=== PATIENT | female | born 1975 | race African-American/Black ===

== ENCOUNTER 2016-09-02 20:41 | Emergency (ER) | payer MEDICAID ==
[2016-09-02] MEDS ORDERED: OXYCODONE-ACETAMINOPHEN 5-325 MG TABLET PO ONE (21:16)
--- NOTE | 2016-09-02 21:16 | ER Document Report ---
ED Medical Screen (RME) - General Stated Complaint: RIGHT ARM PAIN Notes: 41 yo female c/o right arm pain x 3 days. cant raise arm due to pain. started with tingling feeling in arm to the back of shoulder blade. no trauma. similar pain about a month ago. seen by PCM, supposed to be arranging ortho referral. TRAVEL OUTSIDE OF THE [place] IN LAST 30 DAYS: No - Related Data Allergies/Adverse Reactions: shrimp Allergy (Severe, Uncoded 01/19/16 08:15) n and v CONTROL PILLS Allergy (Unknown, Uncoded 01/19/16 08:15) Nausea, itching mushrooms Allergy (Uncoded 01/19/16 08:15) Past Medical History - Past Medical History Cardiac Medical History: Reports: Hx Heart Murmur Denies: Hx Coronary Artery Disease, Hx Heart Attack, Hx Hypertension Pulmonary Medical History: Denies: Hx Asthma, Hx Bronchitis, Hx COPD, Hx Pneumonia Neurological Medical History: Reports: Hx Cerebrovascular Accident - States she was told she had a TIA, Hx Migraine. Denies: Hx Seizures Musculoskeltal Medical History: Denies Hx Arthritis, Reports Hx Musculoskeletal Trauma Traumatic Medical History: Reports: Hx Fractures - Coccyx Past Surgical History: Reports: Hx Abdominal Surgery - umbilical hernia x2, Hx Section - x1, Hx Cholecystectomy - 2005, Hx Hysterectomy, Hx Umbilical Hernia - Immunizations Hx Diphtheria, Pertussis, Tetanus Vaccination: No
[2016-09-03] MEDS ORDERED: METHOCARBAMOL 500 MG TABLET PO ONE (02:17)
[2016-09-03] MEDS ORDERED: PREDNISONE 20 MG TABLET PO ONE (02:22)
--- NOTE | 2016-09-03 02:22 | ER Document Report ---
ED Extremity Problem, Upper - General Chief Complaint: R arm pain/ unable to move arm Stated Complaint: RIGHT ARM PAIN Mode of Arrival: Ambulatory Information source: Patient Notes: Patient is a 41-year-old -Burkin[place] female who presents to the ER today for continued right shoulder, right arm, right upper back pain with numbness and decrease of motion due to pain. Patient has been evaluated for this by her primary care provider who states that he thinks she has a pinched nerve and has advised that she follow-up with orthopedics. Patient states that she has not been able to follow-up with orthopedics because she has not been given her new address or phone number. She denies any injury to the arm, chest pain, shortness of breath, numbness or tingling anywhere else. TRAVEL OUTSIDE OF THE [place] IN LAST 30 DAYS: No - Related Data Allergies/Adverse Reactions: shrimp Allergy (Severe, Uncoded 01/19/16 08:15) n and v CONTROL PILLS Allergy (Unknown, Uncoded 01/19/16 08:15) Nausea, itching mushrooms Allergy (Uncoded 01/19/16 08:15) Past Medical History - General Information source: Patient - Social History Smoking Status: Unknown if Ever Smoked Family History: Arthritis, DM, Hypertension, Malignancy, Thyroid Disfunction, Other - PE on Fathers side Patient has suicidal ideation: No Patient has homicidal ideation: No - Past Medical History Cardiac Medical History: Reports: Hx Heart Murmur Denies: Hx Coronary Artery Disease, Hx Heart Attack, Hx Hypertension Pulmonary Medical History: Denies: Hx Asthma, Hx Bronchitis, Hx COPD, Hx Pneumonia Neurological Medical History: Reports: Hx Cerebrovascular Accident - States she was told she had a TIA, Hx Migraine. Denies: Hx Seizures Renal/ Medical History: Denies: Hx Peritoneal Dialysis Musculoskeltal Medical History: Denies Hx Arthritis, Reports Hx Musculoskeletal Trauma Traumatic Medical History: Reports: Hx Fractures - Coccyx Past Surgical History: Reports: Hx Abdominal Surgery - umbilical hernia x2, Hx Section - x1, Hx Cholecystectomy - 2005, Hx Hysterectomy, Hx Umbilical Hernia - Immunizations Hx Diphtheria, Pertussis, Tetanus Vaccination: No Review of Systems - Review of Systems Constitutional: No symptoms reported EENT: No symptoms reported Cardiovascular: No symptoms reported Respiratory: No symptoms reported Gastrointestinal: No symptoms reported Genitourinary: No symptoms reported Female Genitourinary: No symptoms reported Musculoskeletal: See HPI Skin: No symptoms reported Hematologic/Lymphatic: No symptoms reported Neurological/Psychological: No symptoms reported Physical Exam - Notes Notes: PHYSICAL EXAMINATION: GENERAL: Appears uncomfortable, but in no acute distress. HEAD: Atraumatic, normocephalic. EYES: Pupils equal round and reactive to light, extraocular movements intact, sclera anicteric, conjunctiva are normal. NECK: Normal range of motion but with pain with rotation to the right, supple without lymphadenopathy LUNGS: CTAB and equal. No wheezes rales or rhonchi. HEART: Regular rate and rhythm without murmurs BACK: Right trapezius tenderness, no vertebral tenderness, normal ROM GI/: no CVA tenderness EXTREMITIES: Decreased range of motion of the right arm secondary to pain, decreased ham facer strength of the right hand secondary to pain only, no pitting edema. No cyanosis. Good capillary refill in all extremities, good pulses in all extremities NEUROLOGICAL: Cranial nerves grossly intact. Normal sensory/motor exams. PSYCH: Normal mood, normal affect. SKIN: Warm, Dry, normal turgor, no rashes or lesions noted Course - Re-evaluation Re-evalutation: 09/03/16 03:43 Patient states that she has been diagnosed with a pinched nerve in her neck and that is what her primary care provider thinks is causing her pain. I will give her orthopedics new address and phone number to follow-up with as her primary care provider wants, patient will be placed in a sling here for comfort but has been advised to try to move the arm as much as possible. She feels better after muscle relaxer and steroid medication given here. I will send her home with these medications as well. Discharge - Discharge Clinical Impression: Upper back pain on right side, Right arm pain Condition: Stable Disposition: HOME, SELF-CARE Additional Instructions: Return immediately for any new or worsening symptoms. Follow up with orthopedic, call tomorrow to make followup appointment. Orthopedic Office [facility] [address] [place] [address] phone: [phone] Prescriptions: Methocarbamol [Robaxin 500 mg Tablet] 1,000 mg PO BID PRN #40 tablet PRN Reason: Prednisone 60 mg PO DAILY #21 tablet
[2016-09-03] MEDS ORDERED: HYDROCODONE/ACETAMINOPHEN 5-325 MG 6 TAB/DSPK PO PRN (03:46)
[2016-09-03 04:14] VITALS: BP 129/79
== END 2016-09-03 04:10 | disposition home or self-care (01) ==
LOC: ER 20:41
DX: G58.9 Mononeuropathy, unspecified (principal); M79.601 Pain in right arm; M25.511 Pain in right shoulder; M54.89 Other dorsalgia; R20.0 Anesthesia of skin; Z91.013 Allergy to seafood; Z88.8 Allergy status to other drugs, medicaments and biological substances; Z91.018 Allergy to other foods; Z86.73 Personal history of transient ischemic attack (TIA), and cerebral infarction without residual deficits; Z87.81 Personal history of (healed) traumatic fracture
CPT/HCPCS: 99283; 72040; J3490; J7512

== ENCOUNTER 2016-11-09 06:45 | Inpatient (IN) | payer MEDICAID ==
[2016-10-28 16:08] LABS: HEMATOCRIT 37.4 % (36.0-47.0); HEMOGLOBIN 12.4 g/dL (12.0-15.5); HGB HCT DIFFERENCE -0.2; MEAN CORPUSCULAR HEMOGLOBIN 28.2 pg (27.0-33.4); MEAN CORPUSCULAR HGB CONC 33.1 g/dL (32.0-36.0); MEAN CORPUSCULAR VOLUME 85 fl (80-97); RED BLOOD COUNT 4.38 10^6/uL (3.72-5.28); WHITE BLOOD COUNT 6.3 10^3/uL (4.0-10.5)
[2016-10-28 16:18] LABS: APPEARANCE,URINE SLIGHTLY-CLOUDY; BILIRUBIN,URINE NEGATIVE (NEGATIVE); GLUCOSE, URINE NEGATIVE (NEGATIVE); KETONES,URINE NEGATIVE (NEGATIVE); LEUKOCYTE ESTERASE,URINE NEGATIVE (NEGATIVE); NITRITE,URINE NEGATIVE (NEGATIVE); PROTEIN,URINE NEGATIVE (NEGATIVE); URINE SPECIFIC GRAVITY 1.006; UROBILINOGEN,URINE NEGATIVE mg/dL (<2.0)
[2016-10-28 16:31] LABS: ANION GAP 10 (5-19); BLOOD UREA NITROGEN 6 mg/dL (7-20); CALCIUM 9.3 mg/dL (8.4-10.2); CARBON DIOXIDE 29 mmol/L (22-30); CHLORIDE 104 mmol/L (98-107); CREATININE RESULT 0.61 mg/dL (0.52-1.25); GLUCOSE 99 mg/dL (75-110); POTASSIUM 4.5 mmol/L (3.6-5.0); SODIUM 142.8 mmol/L (137-145)
--- NOTE | 2016-10-28 21:40 | EKG REPORT ---
SEVERITY:- NORMAL ECG - SINUS RHYTHM : Confirmed by: Laureano Gooden 28-Oct-2016 21:38:53
[~2016-11-09 06:45] MED LIST: BUPIVACAINE INJ/PF LIPOSOME/PF 266 MG/20 ML SDV IJ PRN; IBUPROFEN 800 MG/NS 250 ML IV PRN; LACTATED RINGERS 1000 ML IV PRN; LANSOPRAZOLE 15 MG TAB.RAP.DR PO PRN; LIDOCAINE 0.5% INJ-PF (5 MG/ML) 50 ML SDV SUBCUT PRN; OXYCODONE HCL SR 10 MG TABLET PO PRN; SCOPOLAMINE HYDROBROMIDE 1.5 MG PATCH.TD72 TOP PRN; VANCOMYCIN HCL 1,000 MG in DEXTROSE 5%-WATER 250 ML IV PRN
[2016-11-09] MEDS ORDERED: CEFAZOLIN INJ 1 GM VIAL ONE (06:57)
[2016-11-09] MEDS ORDERED: THROMBIN (BOVINE) TOPICAL 20000 UNIT VIAL ONE (07:21)
[2016-11-09] MEDS ORDERED: THROMBIN (BOVINE) 5000 UNIT EPITAXIS KIT ONE (07:21)
[2016-11-09] MEDS ORDERED: BUPIVACAINE INJ/PF LIPOSOME/PF 266 MG/20 ML SDV ONE (07:21)
[2016-11-09] MEDS ORDERED: FENTANYL CITRATE INJ/PF 100 MCG/2 ML AMPUL ONE (07:52)
[2016-11-09] MEDS ORDERED: MIDAZOLAM 2 MG/2 ML INJ ONE (07:52)
[2016-11-09] MEDS ORDERED: PROPOFOL INJ 200 MG/20 ML VIAL IV ONE (07:53)
[2016-11-09] MEDS ORDERED: TRANEXAMIC ACID INJ/PF 1,000 MG/10 ML SDV IV ONE ×2 (07:53→12:00)
[2016-11-09] MEDS ORDERED: DEXMEDETOMIDINE INJ 80 MCG/20 ML VIAL IV ONE (07:53)
[2016-11-09] MEDS ORDERED: KETAMINE HCL INJ 500 MG/10 ML VIAL ONE (08:02)
[2016-11-09] MEDS ORDERED: MORPHINE SULFATE 10 MG/ML INJ IV PRN ×3 (08:18→10:20)
[2016-11-09] MEDS ORDERED: OXYCODONE-ACETAMINOPHEN 5-325 MG TABLET PO PRN ×2 (08:18)
[2016-11-09] MEDS ORDERED: MEPERIDINE HCL/PF INJ 25 MG/1 ML DISP.SYRIN IV PRN (08:18)
[2016-11-09] MEDS ORDERED: DIPHENHYDRAMINE HCL 50 MG/ML VIAL IV PRN ×2 (08:18→10:20)
[2016-11-09] MEDS ORDERED: PROMETHAZINE HCL INJ 25 MG/1 ML VIAL IV PRN ×2 (08:18)
[2016-11-09] MEDS ORDERED: FENTANYL CITRATE INJ/PF 100 MCG/2 ML AMPUL IV PRN ×3 (08:18)
--- NOTE | 2016-11-09 10:19 | Operative Report ---
Operative Report DATE OF SURGERY: 11/09/16 PREOPERATIVE DIAGNOSIS: r knee oa OPERATION: r TKA SURGEON: KRYSTYNA DEGROOT ANESTHESIA: Spinal TISSUE REMOVED OR ALTERED: bone to path ESTIMATED BLOOD LOSS: 100 PROCEDURE: Implants used: Femur: Striker dhavallon #3 CR femur Tibia:, 2 tibia Tibial liner:, 9 mm CS insert Patella:, 29 mm oval patella Procedure with the patient supine on the operating table the, right the limb is prepped and draped in a sterile fashion. The limb was elevated for exsanguination and the tourniquet inflated to 280 torr. A standard midline median parapatellar approach the knee is taken. Access is gained to the femoral canal through the intercondylar notch. Intramedullary alignment instrumentation used to resect 10 mm of distal femur in 5 of valgus. Sizing guide indicated a size. 3 femur. Appropriate cutting jig is then used to fashion anterior posterior and chamfer cuts. A trial reduction femurs performed and this is judged to be adequate. Attention was next turned to the tibia. Using an extra medullary alignment system 9 millimeters was resected off the lateral tibial plateau. This is sized to a size to tibia. A trial reduction was now performed with a 3 femur and a to tibia using a 9 millimeters spacer. It is full extension and central patellofemoral tracking. The articular surface the patella was next resected using an oscillating saw. All trial implants were removed. Polymethylmethacrylate is mixed and used to cement the above implants in place. On adequate curing the cement excess cement was removed the tourniquet was deflated hemostasis obtained the wound is then closed in layers using interrupted Vicryl followed by flip. A sterile compressive dressing was applied and the patient returned to recovery room in satisfactory condition.
[2016-11-09] MEDS ORDERED: ONDANSETRON HCL INJ/PF 4 MG/2 ML SDV IV PRN (10:20)
[2016-11-09] MEDS ORDERED: ZOLPIDEM TARTRATE 5 MG TABLET PO PRN (10:20)
[2016-11-09] MEDS ORDERED: MORPHINE SULFATE 10 MG/ML INJ IM PRN (10:20)
[2016-11-09] MEDS ORDERED: RINGERS SOLUTION,LACTATED 1,000 ML IV PRN (10:20)
[2016-11-09] MEDS ORDERED: MAG HYDROX/AL HYDROX/SIMETH SUSP 30 ML UDCUP PO PRN (10:20)
[2016-11-09] MEDS ORDERED: ONDANSETRON 4 MG TAB.RAPDIS PO PRN (10:20)
[2016-11-09] MEDS ORDERED: METOCLOPRAMIDE HCL INJ/PF 10 MG/2 ML SDV ONE (10:46)
[2016-11-09] MEDS ORDERED: PHENYLEPHRINE HCL INJ/PF 10 MG/1 ML SDV ONE (10:46)
[2016-11-09] MEDS ORDERED: GLYCOPYRROLATE INJ 0.4 MG/2 ML VIAL ONE (10:46)
[2016-11-09] MEDS ORDERED: LIDOCAINE 2% INJ-PF (20 MG/ML) 10 ML AMPUL ONE (10:46)
[2016-11-09] MEDS ORDERED: ONDANSETRON HCL INJ/PF 4 MG/2 ML SDV ONE (10:46)
[2016-11-09] MEDS: OXYCODONE HCL IR 5 MG TABLET PO PRN (12:20)
[2016-11-09] MEDS: MORPHINE SULFATE 10 MG/ML INJ IV PRN ×2 (15:21→21:56)
[2016-11-09] MEDS ORDERED: ACETAMINOPHEN 100 ML IV ONE (16:20)
[2016-11-09] MEDS: CYCLOBENZAPRINE HCL 10 MG TABLET PO PRN (16:24)
[2016-11-09] MEDS: SENNOSIDES/DOCUSATE 8.6-50 MG 1 EACH TABLET PO SCH (17:06)
[2016-11-09] MEDS: IBUPROFEN 800 MG in NORMAL SALINE 250 ML IV SCH (17:06)
[2016-11-09] MEDS: RIVAROXABAN 10 MG TABLET PO SCH (21:46)
[2016-11-09] MEDS: OXYCODONE HCL SR 10 MG TABLET PO SCH (21:46)
[2016-11-09] MEDS ORDERED: VANCOMYCIN HCL 1,000 MG in DEXTROSE 5%-WATER 250 ML IV ONE (22:20)
[2016-11-10] MEDS: IBUPROFEN 800 MG in NORMAL SALINE 250 ML IV SCH ×3 (01:45→17:00)
[2016-11-10] MEDS: LANSOPRAZOLE 30 MG TAB.RAP.DR PO SCH (05:17)
[2016-11-10 07:08] LABS: HEMATOCRIT 34.8 % (36.0-47.0); HEMOGLOBIN 11.5 g/dL (12.0-15.5); HGB HCT DIFFERENCE -0.3; MEAN CORPUSCULAR HEMOGLOBIN 28.2 pg (27.0-33.4); MEAN CORPUSCULAR HGB CONC 33.1 g/dL (32.0-36.0); MEAN CORPUSCULAR VOLUME 85 fl (80-97); RED BLOOD COUNT 4.09 10^6/uL (3.72-5.28); RED CELL DISTRIBUTION WIDTH 14.6 % (11.5-14.0); WHITE BLOOD COUNT 8.2 10^3/uL (4.0-10.5)
[2016-11-10 07:24] LABS: ANION GAP 12 (5-19); BLOOD UREA NITROGEN 7 mg/dL (7-20); CALCIUM 8.6 mg/dL (8.4-10.2); CARBON DIOXIDE 23 mmol/L (22-30); CHLORIDE 105 mmol/L (98-107); CREATININE RESULT 0.57 mg/dL (0.52-1.25); GLUCOSE 117 mg/dL (75-110); POTASSIUM 3.9 mmol/L (3.6-5.0); SODIUM 139.5 mmol/L (137-145)
[2016-11-10] MEDS: MORPHINE SULFATE 10 MG/ML INJ IV PRN ×2 (08:10→11:46)
[2016-11-10] MEDS: PRENATAL VITAMIN W-O CA NO5/FE FUMARATE/FA CAPSULE PO SCH (09:38)
[2016-11-10] MEDS: SERTRALINE HCL 50 MG TABLET PO SCH (09:38)
[2016-11-10] MEDS: OXYCODONE HCL SR 10 MG TABLET PO SCH ×2 (09:38→21:03)
[2016-11-10] MEDS: SENNOSIDES/DOCUSATE 8.6-50 MG 1 EACH TABLET PO SCH ×2 (09:38→17:00)
[2016-11-10] MEDS: OXYCODONE HCL IR 5 MG TABLET PO PRN ×2 (13:31→20:04)
[2016-11-10] MEDS: CYCLOBENZAPRINE HCL 10 MG TABLET PO PRN (13:31)
[2016-11-10] MEDS: ACETAMINOPHEN 325 MG TABLET PO PRN (16:58)
[2016-11-10] MEDS: RIVAROXABAN 10 MG TABLET PO SCH (21:03)
[2016-11-11] MEDS: IBUPROFEN 800 MG in NORMAL SALINE 250 ML IV SCH ×2 (01:19→10:24)
[2016-11-11] MEDS: OXYCODONE HCL IR 5 MG TABLET PO PRN ×2 (02:08→08:39)
[2016-11-11] MEDS: LANSOPRAZOLE 30 MG TAB.RAP.DR PO SCH (05:18)
[2016-11-11] MEDS: ACETAMINOPHEN 325 MG TABLET PO PRN (05:21)
[2016-11-11 06:46] LABS: HEMATOCRIT 32.8 % (36.0-47.0); HEMOGLOBIN 10.7 g/dL (12.0-15.5); HGB HCT DIFFERENCE -0.7; MEAN CORPUSCULAR HEMOGLOBIN 27.8 pg (27.0-33.4); MEAN CORPUSCULAR HGB CONC 32.5 g/dL (32.0-36.0); MEAN CORPUSCULAR VOLUME 86 fl (80-97); RED BLOOD COUNT 3.83 10^6/uL (3.72-5.28); WHITE BLOOD COUNT 8.1 10^3/uL (4.0-10.5)
--- NOTE | 2016-11-11 07:10 | PDOC DISCHARGE SUMMARY ---
General - Admit/Disc Date/PCP Admission Date/Primary Care Provider: 11/09/16 06:45 RICHELLE NYE PA-C Discharge Date: 11/11/16 - Discharge Diagnosis (1) Arthritis of right knee Is this a current diagnosis for this admission?: Yes - Additional Information Resuscitation Status: Full Code Discharge Diet: As Tolerated, Regular Discharge Activity: Activity As Tolerated, Balance Activity w/Rest Home Medications: Cyclobenzaprine HCl [Flexeril 10 mg Tablet] 10 mg PO TIDP PRN 10/28/16 Ibuprofen [Motrin Ib] 600 mg PO Q6 PRN 10/28/16 Meloxicam [Mobic] 7.5 mg PO DAILY 10/28/16 Sertraline HCl [Zoloft] 25 mg PO DAILY 10/28/16 Zolpidem Tartrate [Ambien] 10 mg PO QPM 10/28/16 Oxycodone HCl [Oxy-Ir 5 mg Tablet] 5 mg PO Q6HP PRN #0 tablet 11/11/16 Rivaroxaban [Xarelto 10 mg Tablet] 10 mg PO QHS #0 tablet 11/11/16 History of Present Illness History of Present Illness: SHAQ JENKINS is a 41 year old female with progressive right knee pain and functional disability secondary osteoarthritis. She is currently admitted for elective right knee arthroplasty. Hospital Course Hospital Course: Patient's amended through the operating room where she undergoes uncomplicated right knee arthroplasty. She's returned to the floor in satisfactory condition. She makes excellent progress with physical therapy. Hematocrit remains in a stable range. Dressing is examined on postop day 2. She clean dry and intact. Distal neurovascular examinations intact. Physical Exam Vital Signs: Temp Pulse Resp BP Pulse Ox 36.6 C 72 17 123/50 L 100 11/10/16 23:57 11/10/16 23:57 11/10/16 23:57 11/10/16 23:57 11/10/16 23:57 Intake & Output 11/10/16 11/11/16 11/12/16 06:59 06:59 06:59 Intake Total 4730 1580 Output Total 250 1400 Balance 4480 180 Weight 122.9 kg General appearance: PRESENT: no acute distress Head exam: PRESENT: normocephalic Eye exam: PRESENT: EOMI Respiratory exam: PRESENT: unlabored Cardiovascular exam: PRESENT: RRR Pulses: PRESENT: +1 pedal pulses bilateral Vascular exam: PRESENT: normal capillary refill GI/Abdominal exam: PRESENT: soft Rectal exam: PRESENT: deferred Musculoskeletal exam: PRESENT: other - Lower extremity dressing is clean dry and intact. Neurological exam: PRESENT: alert, awake, oriented to person, oriented to place , oriented to time, oriented to situation, CN II-XII grossly intact. ABSENT: motor sensory deficit Psychiatric exam: PRESENT: appropriate affect, normal mood. ABSENT: homicidal ideation, suicidal ideation Skin exam: PRESENT: dry, intact, warm. ABSENT: cyanosis, rash Results Laboratory Results: 11/11/16 05:52 11/10/16 06:29 11/10/16 11/10/16 11/11/16 06:29 06:29 05:52 WBC 8.2 8.1 RBC 4.09 3.83 Hgb 11.5 L 10.7 L Hct 34.8 L 32.8 L MCV 85 86 MCH 28.2 27.8 MCHC 33.1 32.5 RDW 14.6 H 15.0 H Plt Count 222 233 Sodium 139.5 Potassium 3.9 Chloride 105 Carbon Dioxide 23 Anion Gap 12 BUN 7 Creatinine 0.57 Est GFR ( Amer) > 60 Est GFR (Non-Af Amer) > 60 Glucose 117 H Calcium 8.6 Impressions: Chest X-Ray 10/28/16 15:23 IMPRESSION: Minimal bibasilar bandlike atelectasis. Knee X-Ray 11/09/16 10:21 IMPRESSION: SATISFACTORY POSTOPERATIVE RIGHT KNEE. Status: Imported from PACS Plan Discharge Plan: Patient will be discharged home with home health nursing, home health physical therapy, we'll Walker, bedside commode. The vickie dressing can be changed by the home health nursing services on postop day #7. Follow-up with Dr. Gil in [facility] for surgery in 2 weeks for staple removal. Time Spent: Less than 30 Minutes
[2016-11-11] MEDS ORDERED: DIPHENHYDRAMINE HCL 25 MG CAPSULE PO PRN (09:47)
[2016-11-11] MEDS: OXYCODONE HCL SR 10 MG TABLET PO SCH (10:22)
[2016-11-11] MEDS: SENNOSIDES/DOCUSATE 8.6-50 MG 1 EACH TABLET PO SCH (10:23)
[2016-11-11] MEDS: SERTRALINE HCL 50 MG TABLET PO SCH (10:23)
[2016-11-11] MEDS: PRENATAL VITAMIN W-O CA NO5/FE FUMARATE/FA CAPSULE PO SCH (10:23)
[2016-11-11 11:21] VITALS: BP 132/73
== END 2016-11-11 12:45 | disposition home health service (06) | DRG 470 ==
LOC: INOR 06:45 → 4S 11:39
PROVIDERS: ADMIT Orthopaedic Surgery; ATTEND Orthopaedic Surgery
PROC: 0SRC0J9 Replacement of Right Knee Joint with Synthetic Substitute, Cemented, Open Approach (ICD-10-PCS; principal; 2016-11-09 09:00)
DX: M17.11 Unilateral primary osteoarthritis, right knee (principal); Z68.42 Body mass index [BMI] 45.0-49.9, adult; G43.909 Migraine, unspecified, not intractable, without status migrainosus; E66.01 Morbid (severe) obesity due to excess calories; F17.200 Nicotine dependence, unspecified, uncomplicated; Z98.51 Tubal ligation status; Z90.710 Acquired absence of both cervix and uterus; Z90.49 Acquired absence of other specified parts of digestive tract; Z82.49 Family history of ischemic heart disease and other diseases of the circulatory system; Z83.3 Family history of diabetes mellitus; Z80.9 Family history of malignant neoplasm, unspecified
CPT/HCPCS: 01402; 36415; 71020; 80048; 81001; 83036; 85027; 88305; 88311; 93005; 93010; 94799; C9290; J0131; J0690; J1741; J2250; J2270; J2370; J2405; J2704; J2765; J3010; J3370; J3490; J7050; J7060; S0119

== ENCOUNTER 2017-01-26 21:11 | Emergency (ER) | payer MEDICAID ==
--- NOTE | 2017-01-26 23:00 | RADIOLOGY REPORT (SQ) ---
EXAM DESCRIPTION: KNEE RIGHT 4 VIEWS COMPLETED DATE/TIME: 01/26/2017 10:48 pm REASON FOR STUDY: PAIN COMPARISON: 11/09/2016 NUMBER OF VIEWS: Four views. TECHNIQUE: AP, lateral, and both oblique radiographic images acquired of the right knee. LIMITATIONS: None. FINDINGS: MINERALIZATION: Normal. BONES: No acute fracture or dislocation. No worrisome bone lesions. No significant osteophytes. JOINT: There is been a total right knee replacement. OTHER: No other significant finding. IMPRESSION: There is been prior total right knee replacement. No acute findings. TECHNICAL DOCUMENTATION: JOB ID: [id number] [employer]- All Rights Reserved
[2017-01-27] MEDS ORDERED: OXYCODONE-ACETAMINOPHEN 5-325 MG TABLET PO ONE (00:30)
[2017-01-27] MEDS ORDERED: ONDANSETRON 4 MG TAB.RAPDIS PO ONE (00:30)
[2017-01-27] MEDS ORDERED: HYDROCODONE/ACETAMINOPHEN 5-325 MG 6 TAB/DSPK PO PRN (00:32)
--- NOTE | 2017-01-27 00:33 | ER Document Report ---
HPI - HPI Patient complains to provider of: over flexed right knee Onset: Just prior to arrival Onset/Duration: Sudden Quality of pain: Achy Pain Level: 5 Context: 41 yo female accidentally hyperflexed her right total knee replacement (11/11/16 ) tonight. [place] and heard a pop. Dr. Degroot surgeon. Associated Symptoms: None Exacerbated by: Movement Relieved by: Denies Similar symptoms previously: No Recently seen / treated by doctor: No - ROS ROS below otherwise negative: Yes Systems Reviewed and Negative: Yes All other systems reviewed and negative - GASTROINTESTINAL Gastrointestinal: REPORTS: Nausea - MUSCULOSKELETAL Musculoskeletal: REPORTS: Extremity pain - DERM Skin Color: Normal Skin Problems: None - NURSING COMMENTS Comment: Pt presents with c/o pain R knee/ leg s/p falling and landing on knee and bending leg back. States that she has had a knee replacement on the knee and she felt something pop. Is having alot of pain from knee up to hip. The pain is making her nauseated. A/O, sitting in WC, answers questions, appropriate. Past Medical History - General Information source: Patient - Social History Smoking Status: Unknown if Ever Smoked Frequency of alcohol use: None Drug Abuse: None Lives with: Family Family History: Arthritis, DM, Hypertension, Malignancy, Thyroid Disfunction, Other - PE on Fathers side Patient has suicidal ideation: No Patient has homicidal ideation: No - Past Medical History Cardiac Medical History: Reports: Hx Heart Murmur Pulmonary Medical History: Neurological Medical History: Reports: Hx Migraine GI Medical History: Reports: Hx Gastroesophageal Reflux Disease - occ. Musculoskeltal Medical History: Reports Hx Arthritis, Reports Hx Musculoskeletal Trauma Psychiatric Medical History: Reports: Hx Depression Traumatic Medical History: Reports: Hx Fractures - Coccyx Past Surgical History: Reports: Hx Abdominal Surgery - umbilical hernia x2, Hx Section - x1, Hx Cholecystectomy - 2005, Hx Herniorrhaphy - umbilical hernia repair x2, Hx Hysterectomy, Hx Tubal Ligation, Hx Umbilical Hernia - Immunizations Hx Diphtheria, Pertussis, Tetanus Vaccination: No Vertical Provider Document - CONSTITUTIONAL Agree With Documented VS: Yes Exam Limitations: No Limitations General Appearance: Mild Distress - INFECTION CONTROL TRAVEL OUTSIDE OF THE [place] IN LAST 30 DAYS: No - HEENT HEENT: Normocephalic - NECK Neck: Supple - RESPIRATORY O2 Sat by Pulse Oximetry: 98 - MUSCULOSKELETAL/EXTREMETIES Musculoskeletal/Extremeties: MAEW, FROM, Tender - anterior right knee, no effusion ,patellar tendon intact. Course - Vital Signs Vital signs: Temp Pulse Resp BP Pulse Ox 98.4 F 78 18 128/75 H 98 01/26/17 22:02 01/26/17 22:02 01/26/17 22:02 01/26/17 22:02 01/26/17 22:02 Discharge - Discharge Clinical Impression: hyperflexion of right TKR Condition: Good Disposition: HOME, SELF-CARE Instructions: Ice & Elevation ([facility]), Suspected Internal Knee Injury ([facility]), Oral Narcotic Medication ([facility]) Additional Instructions: use your walker elevate, ice see dr. degroot tomorrow for recheck to er if worse Prescriptions: Hydrocodone Bit/Acetaminophen [Hydrocodon-Acetaminophen 5-325] 1 - 2 each PO Q4HP PRN #15 tablet PRN Reason: Referrals: MICHELLE MAYERS DO [Primary Care Provider] - Follow up as needed KRYSTYNA DEGROOT MD [ACTIVE STAFF] - Follow up tomorrow
[2017-01-27 00:59] VITALS: BP 130/88
== END 2017-01-27 00:58 | disposition home or self-care (01) ==
LOC: ER 21:11
DX: M25.561 Pain in right knee (principal); X50.9XXA Other and unspecified overexertion or strenuous movements or postures, initial encounter
CPT/HCPCS: 99283; 73564; S0119

== ENCOUNTER 2017-04-16 10:39 | Emergency (ER) | payer MEDICAID ==
[2017-04-16] MEDS ORDERED: PHENAZOPYRIDINE HCL 200 MG TABLET PO ONE (10:52)
[2017-04-16] MEDS ORDERED: KETOROLAC TROMETHAMINE 60 MG/2 ML SDV IM ONE (10:52)
--- NOTE | 2017-04-16 10:52 | ER Document Report ---
ED GI/ - General Mode of Arrival: Ambulatory Information source: Patient TRAVEL OUTSIDE OF THE [place] IN LAST 30 DAYS: No <DOTTIE GOLDEN - Last Filed: 04/16/17 12:24> <DIEGODEONNAMAHESH - Last Filed: 04/16/17 12:45> - General Chief Complaint: Flank Pain Stated Complaint: VOMITING,URINARY PAIN Time Seen by Provider: 04/16/17 10:46 Notes: Patient is a 41 year old female presenting to the emergency department for frequency, burning with urination, and left CVA tenderness. Patient states 2 days ago she was having frequency every 15 minutes and yesterday she started having the CVA tenderness around 16:00. Patient states her symptoms progressed throughout the night with chills, sweats, and vomiting. Patient states her left flank is hot and she now also has some pain with urination. Patient does not know if she has any fever. Patient has a history of a previous UTI but states that her pain and symptoms are worse than in the past. Patient's PCP is [facility]. (DOTTIE GOLDEN) - Related Data Allergies/Adverse Reactions: ethinyl estradiol [From Ortho Tri-Cyclen LO (28)] Adverse Reaction (Verified 10:42) Nausea, Itching norgestimate [From Ortho Tri-Cyclen LO (28)] Adverse Reaction (Verified 10:42) Nausea, Itching shrimp Allergy (Severe, Uncoded 04/16/17 10:42) n and v mushrooms Allergy (Uncoded 04/16/17 10:42) Anaphylaxis, Headache Past Medical History - General Information source: Patient - Social History Smoking Status: Former Smoker Cigarette use (# per day): No Chew tobacco use (# tins/day): No Frequency of alcohol use: None Drug Abuse: None Family History: Arthritis, DM, Hypertension, Malignancy, Thyroid Disfunction, Other - PE on Fathers side Patient has suicidal ideation: No Patient has homicidal ideation: No - Past Medical History Cardiac Medical History: Reports: Hx Heart Murmur Pulmonary Medical History: Neurological Medical History: Reports: Hx Cerebrovascular Accident - mild 2013, Hx Migraine GI Medical History: Reports: Hx Gastroesophageal Reflux Disease - occ. Musculoskeltal Medical History: Reports Hx Arthritis - RA, Reports Hx Musculoskeletal Trauma Psychiatric Medical History: Reports: Hx Depression Traumatic Medical History: Reports: Hx Fractures - Coccyx Past Surgical History: Reports: Hx Abdominal Surgery - umbilical hernia x2, Hx Section - x1, Hx Cholecystectomy - 2005, Hx Herniorrhaphy - umbilical hernia repair x2, Hx Hysterectomy, Hx Orthopedic Surgery - knee replacement, Hx Tubal Ligation, Hx Umbilical Hernia - Immunizations Hx Diphtheria, Pertussis, Tetanus Vaccination: No <DOTTIE GOLDEN - Last Filed: 04/16/17 12:24> Review of Systems - Review of Systems Constitutional: No symptoms reported EENT: No symptoms reported Cardiovascular: See HPI, Dizziness Respiratory: No symptoms reported Gastrointestinal: See HPI, Abdominal pain Genitourinary: See HPI, Burning, Dysuria, Frequency, Flank pain Female Genitourinary: No symptoms reported Musculoskeletal: No symptoms reported Skin: No symptoms reported Hematologic/Lymphatic: No symptoms reported Neurological/Psychological: No symptoms reported -: Yes All other systems reviewed and negative <DOTTIE GOLDEN - Last Filed: 04/16/17 12:24> Physical Exam - Vital signs Interpretation: Normal <DOTTIE GOLDEN - Last Filed: 04/16/17 12:24> <MAHESH SYLVESTER - Last Filed: 04/16/17 12:45> - Vital signs Vitals: Temp Pulse Resp BP Pulse Ox 98.7 F 82 22 H 147/94 H 96 04/16/17 10:42 04/16/17 10:42 04/16/17 10:42 04/16/17 10:42 04/16/17 10:42 - Notes Notes: GENERAL: Alert, interacts well. Appears uncomfortable, holding left flank. Mild distress. HEAD: Normocephalic, atraumatic. EYES: Pupils equal, round, and reactive to light. Extraocular movements intact. ENT: Oral mucosa moist, tongue midline. NECK: Full range of motion. Supple. Trachea midline. LUNGS: Clear to auscultation bilaterally, no wheezes, rales, or rhonchi. No respiratory distress. HEART: Regular rate and rhythm. No murmurs, gallops, or rubs. ABDOMEN: Soft, slight epigastric, periumbilical and left lower quadrant are all tender with palpation. Non-distended. Bowel sounds present in all 4 quadrants. BACK: Left CVA tenderness with palpation. EXTREMITIES: Moves all 4 extremities spontaneously. No edema. No cyanosis. NEUROLOGICAL: Alert and oriented x3. Normal speech. PSYCH: Normal affect, normal mood. SKIN: Warm, dry, normal turgor. No rashes or lesions noted. (DOTITE GOLDEN) Course - Laboratory Result Diagrams: 04/16/17 11:13 04/16/17 11:13 - Consults Dr. Baker Time consulted: 12:16 <DOTTIE GOLDEN - Last Filed: 04/16/17 12:24> - Laboratory Result Diagrams: 04/16/17 11:13 04/16/17 11:13 <MAHESH SYLVESTER - Last Filed: 04/16/17 12:45> - Re-evaluation Re-evalutation: 04/16/17 12:14 CBC unremarkable no leukocytosis, CMP grossly unremarkable no signs of renal failure, lipase normal, urinalysis shows large blood and large leukocyte esterase, patient was sent for CT scan and it did reveal a 3.3 mm left ureteral stone with mild hydronephrosis. This will be treated with antibiotics and close follow-up with urology. 04/16/17 12:[address] Baker from urology, agrees to follow the patient as an outpatient after getting 1 g of Rocephin here being started on Augmentin and is to have a KUB performed next week and follow-up in their office. Also treat with Flomax. (MAHESH SYLVESTER) - Vital Signs Vital signs: Temp Pulse Resp BP Pulse Ox 98.5 F 64 20 129/78 H 97 04/16/17 12:33 04/16/17 12:33 04/16/17 12:33 04/16/17 12:33 04/16/17 12:33 - Laboratory Laboratory results interpreted by me: 04/16/17 04/16/17 04/16/17 11:13 11:13 11:13 RDW 16.5 H Carbon Dioxide 31 H BUN 6 L AST 13 L Urine Protein 100 H Urine Blood LARGE H Ur Leukocyte Esterase LARGE H - Consults Dr. Baker Reason for consultation: 04/16/17 12:[address] Baker, urology to discuss patient and recommendations. (DOTTIE GOLDEN) Discharge <DOTTIE GOLDEN - Last Filed: 04/16/17 12:24> <MAHESH SYLVESTER - Last Filed: 04/16/17 12:45> - Discharge Clinical Impression: Left ureteral calculus UTI (urinary tract infection) Qualifiers: Urinary tract infection type: acute cystitis Hematuria presence: with hematuria Qualified Code(s): N30.01 - Acute cystitis with hematuria Hydronephrosis Qualifiers: Hydronephrosis type: with ureteral calculous obstruction Qualified Code(s): N13.2 - Hydronephrosis with renal and ureteral calculous obstruction Condition: Stable Disposition: HOME, SELF-CARE Additional Instructions: You have a kidney stone as well as urinary tract infection, this will be treated with antibiotics, Flomax to help the stone pass more quickly, ibuprofen for pain as well as Percocet for increasing pain. Please return for fever, uncontrollable pain or any new or concerning symptoms. We have given you Zofran for the vomiting. Next week he will have a KUB (x-ray of your abdomen) and then follow-up with Dr. Baker in his office. Please call him Wednesday morning to arrange a follow- up appointment. Prescriptions: Ondansetron [Zofran Odt 4 mg Tablet] 1 - 2 tab PO Q4HP PRN #20 tab.rapdis PRN Reason: Oxycodone HCl/Acetaminophen [Percocet 5-325 mg Tablet] 1 tab PO Q4HP PRN #15 tab PRN Reason: Amox Tr/Potassium Clavulanate [Augmentin 875-125 Tablet] 1 tab PO BID 10 Days tablet Tamsulosin HCl [Flomax 0.4 mg Cap.sr] 0.4 mg PO DAILY #7 cap.sr.24h Forms: Follow-Up Radiology Testing, Return to Work Referrals: SUNNY BAKER MD [[employer]] - Follow up as needed Scribe Attestation: 04/16/17 12:45 I personally performed the services described in the documentation, reviewed and edited the documentation which was dictated to the scribe in my presence, and it accurately records my words and actions. (MAHESH SYLVESTER) Scribe Documentation - Scribe Written by Scribe:: Michael Rivera 04/16/17 11:39 acting as scribe for :: Srinivasan <DOTTIE GOLDEN - Last Filed: 04/16/17 12:24>
[2017-04-16 11:23] LABS: ABSOLUTE BASOPHILS # (AUTO) 0.1 10^3/uL (0.0-0.2); ABSOLUTE MONOCYTES (AUTO) 0.7 10^3/uL (0.1-1.4); ABSOLUTE NEUT (AUTO) 6.2 10^3/uL (1.7-8.2); BASOPHILS % (AUTO) 0.7 % (0-2); EOSINOPHILS % (AUTO) 0.1 % (0-6); HEMATOCRIT 38.4 % (36.0-47.0); HEMOGLOBIN 12.7 g/dL (12.0-15.5); HGB HCT DIFFERENCE -0.3; MEAN CORPUSCULAR HGB CONC 33.1 g/dL (32.0-36.0); MEAN CORPUSCULAR VOLUME 85 fl (80-97); RED BLOOD COUNT 4.54 10^6/uL (3.72-5.28); RED CELL DISTRIBUTION WIDTH 16.5 % (11.5-14.0); SEGMENTED NEUTROPHILS % (AUTO) 69.2 % (42-78); WHITE BLOOD COUNT 8.9 10^3/uL (4.0-10.5)
[2017-04-16 11:32] LABS: APPEARANCE,URINE CLOUDY; BILIRUBIN,URINE NEGATIVE (NEGATIVE); GLUCOSE, URINE NEGATIVE (NEGATIVE); KETONES,URINE NEGATIVE (NEGATIVE); LEUKOCYTE ESTERASE,URINE LARGE (NEGATIVE); NITRITE,URINE NEGATIVE (NEGATIVE); PROTEIN,URINE 100 mg/dL (NEGATIVE); UROBILINOGEN,URINE NEGATIVE mg/dL (<2.0)
[2017-04-16 11:57] LABS: ALANINE AMINOTRANSFERASE 26 U/L (9-52); ALBUMIN 3.9 g/dL (3.5-5.0); ALKALINE PHOSPHATASE 111 U/L (38-126); ANION GAP 9 (5-19); ASPARTATE AMINO TRANSFERASE 13 U/L (14-36); BILIRUBIN,DIRECT 0.3 mg/dL (0.0-0.4); BILIRUBIN,TOTAL 0.5 mg/dL (0.2-1.3); BLOOD UREA NITROGEN 6 mg/dL (7-20); CALCIUM 9.4 mg/dL (8.4-10.2); CARBON DIOXIDE 31 mmol/L (22-30); CHLORIDE 103 mmol/L (98-107); CREATININE RESULT 0.74 mg/dL (0.52-1.25); GLUCOSE 100 mg/dL (75-110); LIPASE 92.5 U/L (23-300); POTASSIUM 4.1 mmol/L (3.6-5.0); SODIUM 142.9 mmol/L (137-145)
--- NOTE | 2017-04-16 12:03 | RADIOLOGY REPORT (SQ) ---
EXAM DESCRIPTION: CT LTD RENAL STONE PROTOCOL ON COMPLETED DATE/TIME: 04/16/2017 11:51 am REASON FOR STUDY: left flank pain, hematuria COMPARISON: None. TECHNIQUE: CT scan of the abdomen and pelvis performed without intravenous or oral contrast. Images reviewed with lung, soft tissue, and bone windows. Reconstructed coronal and sagittal MPR images revi ewed. All images stored on PACS. All CT scanners at this facility use dose modulation, iterative reconstruction, and/or weight based d osing when appropriate to reduce radiation dose to as low as reasonably achievable (ALARA). [facility]: Dose Right [facility]: CareDose [facility]: Dose Right [facility]: Teradose 4D [facility]: [employer] RADIATION DOSE: Up-to-date CT equipment and radiation dose reduction techniques were employed. CTDIv ol: 18.9 mGy. DLP: 1124 mGy-cm.mGy. LIMITATIONS: None. FINDINGS: LOWER CHEST: No significant findings. No nodules or infiltrates. NON-CONTRASTED LIVER, SPLEEN, ADRENALS: Evaluation limited by lack of IV contrast. No identified sign ificant masses. PANCREAS: No masses. No peripancreatic inflammatory changes. GALLBLADDER: Surgically absent. RIGHT KIDNEY AND URETER: No suspicious masses. Assessment limited by lack of IV contrast. No signif icant calcifications. No hydronephrosis or hydroureter. LEFT KIDNEY AND URETER: No suspicious masses. Assessment limited by lack of IV contrast. 3 mm stone left ureter level of L4-5. Mild hydronephrosis and hydroureter. AORTA AND RETROPERITONEUM: No aneurysm. No retroperitoneal masses or adenopathy. BOWEL AND PERITONEAL CAVITY: No obvious masses or inflammatory changes. No free fluid. APPENDIX: Normal. PELVIS, BLADDER, AND ABDOMINAL WALL:Prior ventral hernia repair. BONES: No significant findings. OTHER: No other significant finding. IMPRESSION: 3 mm stone left ureter. Mild hydronephrosis. TECHNICAL DOCUMENTATION: JOB ID: [id number] Quality ID # [id number]: Final reports with documentation of one or more dose reduction techniques (e.g., Au tomated exposure control, adjustment of the mA and/or kV according to patient size, use of iterative reconstruction technique) 2010 [employer]- All Rights Reserved
[2017-04-16] MEDS ORDERED: CEFTRIAXONE INJ 1000 MG VIAL IM ONE (12:20)
[2017-04-16] MEDS ORDERED: LIDOCAINE 1% INJ-PF (10 MG/ML) 30 ML SDV INFIL ONE (12:20)
[2017-04-16 12:41] VITALS: BP 129/78
== END 2017-04-16 12:40 | disposition home or self-care (01) ==
LOC: ER 10:39
DX: N13.2 Hydronephrosis with renal and ureteral calculous obstruction (principal); N30.01 Acute cystitis with hematuria; R68.83 Chills (without fever); R61 Generalized hyperhidrosis; R11.10 Vomiting, unspecified; R42 Dizziness and giddiness; Z91.013 Allergy to seafood; Z87.892 Personal history of anaphylaxis; Z91.018 Allergy to other foods; Z87.891 Personal history of nicotine dependence; Z86.73 Personal history of transient ischemic attack (TIA), and cerebral infarction without residual deficits
CPT/HCPCS: 99284; 96372; 36415; 87086; 83690; 85025; 87088; 80053; 81001; 87186; 76380; J1885; J3490 ×2; J0696

== ENCOUNTER 2017-06-03 19:46 | Emergency (ER) | payer MEDICAID ==
[2017-06-03 21:38] LABS: APPEARANCE,URINE CLEAR; BILIRUBIN,URINE NEGATIVE (NEGATIVE); GLUCOSE, URINE NEGATIVE (NEGATIVE); KETONES,URINE NEGATIVE (NEGATIVE); LEUKOCYTE ESTERASE,URINE NEGATIVE (NEGATIVE); NITRITE,URINE NEGATIVE (NEGATIVE); PROTEIN,URINE NEGATIVE (NEGATIVE); URINE SPECIFIC GRAVITY 1.021
[2017-06-03] MEDS ORDERED: OXYCODONE-ACETAMINOPHEN 5-325 MG TABLET PO ONE (22:02)
--- NOTE | 2017-06-03 22:02 | ER Document Report ---
ED Medical Screen (RME) - General Chief Complaint: Flank Pain Stated Complaint: BODY PAIN,HURTS TO BREATH Time Seen by Provider: 06/03/17 21:59 Mode of Arrival: Ambulatory Information source: Patient Notes: Pt has 1 day of right sided back pain radiating to the right side and right upper abdomen, right middle abdomen. She denies any fevers or chills. TRAVEL OUTSIDE OF THE [place] IN LAST 30 DAYS: No - Related Data Allergies/Adverse Reactions: ethinyl estradiol [From Ortho Tri-Cyclen LO (28)] Adverse Reaction (Verified 08/08 21:22) Nausea, Itching norgestimate [From Ortho Tri-Cyclen LO (28)] Adverse Reaction (Verified 21:22) Nausea, Itching shrimp Allergy (Severe, Uncoded 06/03/17 21:22) n and v mushrooms Allergy (Uncoded 06/03/17 21:22) Anaphylaxis, Headache Past Medical History - General Information source: Patient - Social History Chew tobacco use (# tins/day): No Frequency of alcohol use: None Drug Abuse: None - Past Medical History Cardiac Medical History: Reports: Hx Heart Murmur Denies: Hx Atrial Fibrillation, Hx Congestive Heart Failure, Hx Coronary Artery Disease, Hx Heart Attack, Hx Hypercholesterolemia, Hx Hypertension, Hx Peripheral Vascular Disease Pulmonary Medical History: Neurological Medical History: Reports: Hx Cerebrovascular Accident - mild 2013, Hx Migraine. Denies: Hx Seizures Renal/ Medical History: Denies: Hx End Stage Renal Disease, Hx Kidney Stones, Hx Ovarian Cysts, Hx Peritoneal Dialysis, Hx Pelvic Inflammatory Disease Malignancy Medical History: Denies: Hx Breast Cancer, Hx Cervical Cancer, Hx Leukemia, Hx Ovarian Cancer GI Medical History: Reports: Hx Gastroesophageal Reflux Disease - occ.. Denies : Hx Crohn's Disease, Hx Hiatal Hernia, Hx Irritable Bowel, Hx Liver Failure, Hx Pancreatitis, Hx Ulcer Musculoskeltal Medical History: Reports Hx Arthritis - RA, Denies Hx Fibromyalgia, Denies Hx Multiple Sclerosis, Denies Hx Muscular Dystrophy, Reports Hx Musculoskeletal Trauma Psychiatric Medical History: Reports: Hx Depression Denies: Hx Bipolar Disorder, Hx Dementia, Hx Post Traumatic Stress Disorder, Hx Schizophrenia Traumatic Medical History: Reports: Hx Fractures - Coccyx Infectious Medical History: Denies: Hx HIV Past Surgical History: Reports: Hx Abdominal Surgery - umbilical hernia x2, Hx Section - x1, Hx Cholecystectomy - 2005, Hx Herniorrhaphy - umbilical hernia repair x2, Hx Hysterectomy, Hx Orthopedic Surgery - knee replacement, Hx Tubal Ligation, Hx Umbilical Hernia. Denies: Hx Appendectomy, Hx Bowel Surgery , Hx Colostomy, Hx Coronary Artery Bypass Graft, Hx Gastric Bypass Surgery, Hx Mastectomy, Hx Pacemaker, Hx Tonsillectomy - Immunizations Hx Diphtheria, Pertussis, Tetanus Vaccination: Yes History of Influenza Vaccine for 05/2017 - 10/2017 Season: No Review of Systems - Review of Systems Gastrointestinal: See HPI Genitourinary: See HPI Physical Exam - Vital signs Vitals: Temp Pulse Resp BP Pulse Ox 98.5 F 64 16 137/82 H 99 06/03/17 20:46 06/03/17 20:46 06/03/17 20:46 06/03/17 20:46 06/03/17 20:46 - Notes Notes: General: holding right side, in mild acute distress Course - Vital Signs Vital signs: Temp Pulse Resp BP Pulse Ox 98.5 F 64 18 137/82 H 99 06/03/17 20:46 06/03/17 20:46 06/03/17 21:20 06/03/17 20:46 06/03/17 20:46 - Laboratory Laboratory results interpreted by me: 06/03/17 20:55 Urine Blood SMALL H Urine Urobilinogen 2.0 H
--- NOTE | 2017-06-03 22:45 | RADIOLOGY REPORT (SQ) ---
EXAM DESCRIPTION: CT LTD RENAL STONE PROTOCOL ON COMPLETED DATE/TIME: 06/03/2017 10:28 pm REASON FOR STUDY: right flank pain COMPARISON: 04/16/2017 TECHNIQUE: CT scan of the abdomen and pelvis performed without intravenous or oral contrast. Images reviewed with lung, soft tissue, and bone windows. Reconstructed coronal and sagittal MPR images revi ewed. All images stored on PACS. All CT scanners at this facility use dose modulation, iterative reconstruction, and/or weight based d osing when appropriate to reduce radiation dose to as low as reasonably achievable (ALARA). [facility]: Dose Right [facility]: CareDose [facility]: Dose Right [facility]: Teradose 4D [facility]: [employer] RADIATION DOSE: Up-to-date CT equipment and radiation dose reduction techniques were employed. CTDIv ol: 26.2 mGy. DLP: 1462 mGy-cm.mGy. LIMITATIONS: None. FINDINGS: LOWER CHEST: No significant findings. No nodules or infiltrates. NON-CONTRASTED LIVER, SPLEEN, ADRENALS: Evaluation limited by lack of IV contrast. No identified sign ificant masses. PANCREAS: No masses. No peripancreatic inflammatory changes. GALLBLADDER: Surgically absent. RIGHT KIDNEY AND URETER: No suspicious masses. Assessment limited by lack of IV contrast. No signif icant calcifications. No hydronephrosis or hydroureter. LEFT KIDNEY AND URETER: No suspicious masses. Assessment limited by lack of IV contrast. No signifi cant calcifications. No hydronephrosis or hydroureter. AORTA AND RETROPERITONEUM: No aneurysm. No retroperitoneal masses or adenopathy. BOWEL AND PERITONEAL CAVITY: No obvious masses or inflammatory changes. No free fluid. APPENDIX: Normal. PELVIS, BLADDER, AND ABDOMINAL WALL:Prior ventral hernia repair. No free fluid. Bladder normal. BONES: No acute findings. Bilateral sacroiliitis. OTHER: No other significant finding. IMPRESSION: NO ACUTE PROCESS IN THE ABDOMEN OR PELVIS. COMMENT: Quality ID # [id number]: Final reports with documentation of one or more dose reduction techniques (e.g., Automated exposure control, adjustment of the mA and/or kV according to patient size, use of iterative reconstruction technique) TECHNICAL DOCUMENTATION: JOB ID: [id number]- All Rights Reserved
--- NOTE | 2017-06-03 23:08 | ER Document Report ---
ED General - General Chief Complaint: Flank Pain Stated Complaint: BODY PAIN,HURTS TO BREATH Time Seen by Provider: 06/03/17 21:59 Mode of Arrival: Ambulatory Notes: Patient is a 42-year-old female presents with complaint of pain that radiates from her right back around to her right upper abdomen and epigastric region. She also complains of a little bit of pain with urination. She says if she coughs or takes a deep breath hurts as well. She twists or turns or pushes on this area and also hurts. No pain into the chest or lungs. No fevers. No infections. She said she had similar pain while back and it was a kidney stone. No other complaints at this time. TRAVEL OUTSIDE OF THE [place] IN LAST 30 DAYS: No - Related Data Allergies/Adverse Reactions: ethinyl estradiol [From Ortho Tri-Cyclen LO (28)] Adverse Reaction (Verified 08/08 21:22) Nausea, Itching norgestimate [From Ortho Tri-Cyclen LO (28)] Adverse Reaction (Verified 21:22) Nausea, Itching shrimp Allergy (Severe, Uncoded 06/03/17 21:22) n and v mushrooms Allergy (Uncoded 06/03/17 21:22) Anaphylaxis, Headache Past Medical History - General Information source: Patient - Social History Smoking Status: Smoker,Current Status Unk Chew tobacco use (# tins/day): No Frequency of alcohol use: None Drug Abuse: None Family History: Arthritis, DM, Hypertension, Malignancy, Thyroid Disfunction, Other - PE on Fathers side Patient has suicidal ideation: No - Past Medical History Cardiac Medical History: Reports: Hx Heart Murmur Denies: Hx Atrial Fibrillation, Hx Congestive Heart Failure, Hx Coronary Artery Disease, Hx Heart Attack, Hx Hypercholesterolemia, Hx Hypertension, Hx Peripheral Vascular Disease Pulmonary Medical History: Neurological Medical History: Reports: Hx Cerebrovascular Accident - mild 2013, Hx Migraine. Denies: Hx Seizures Renal/ Medical History: Denies: Hx End Stage Renal Disease, Hx Kidney Stones, Hx Ovarian Cysts, Hx Peritoneal Dialysis, Hx Pelvic Inflammatory Disease Malignancy Medical History: Denies: Hx Breast Cancer, Hx Cervical Cancer, Hx Leukemia, Hx Ovarian Cancer GI Medical History: Reports: Hx Gastroesophageal Reflux Disease - occ.. Denies : Hx Crohn's Disease, Hx Hiatal Hernia, Hx Irritable Bowel, Hx Liver Failure, Hx Pancreatitis, Hx Ulcer Musculoskeltal Medical History: Reports Hx Arthritis - RA, Denies Hx Fibromyalgia, Denies Hx Multiple Sclerosis, Denies Hx Muscular Dystrophy, Reports Hx Musculoskeletal Trauma Psychiatric Medical History: Reports: Hx Depression Denies: Hx Bipolar Disorder, Hx Dementia, Hx Post Traumatic Stress Disorder, Hx Schizophrenia Traumatic Medical History: Reports: Hx Fractures - Coccyx Infectious Medical History: Denies: Hx HIV Past Surgical History: Reports: Hx Abdominal Surgery - umbilical hernia x2, Hx Section - x1, Hx Cholecystectomy - 2005, Hx Herniorrhaphy - umbilical hernia repair x2, Hx Hysterectomy, Hx Orthopedic Surgery - knee replacement, Hx Tubal Ligation, Hx Umbilical Hernia. Denies: Hx Appendectomy, Hx Bowel Surgery , Hx Colostomy, Hx Coronary Artery Bypass Graft, Hx Gastric Bypass Surgery, Hx Mastectomy, Hx Pacemaker, Hx Tonsillectomy - Immunizations Hx Diphtheria, Pertussis, Tetanus Vaccination: Yes Review of Systems - Review of Systems Notes: My Normal Review Basic REVIEW OF SYSTEMS: CONSTITUTIONAL : Denies fever, chills, or sweats. Denies recent illness. EENT: Denies eye, ear, throat, or mouth pain or symptoms. Denies nasal or sinus congestion. CARDIOVASCULAR: Denies chest pain. RESPIRATORY: Denies cough, cold, or chest congestion. Denies shortness of breath, difficulty breathing, or wheezing. GASTROINTESTINAL: Right-sided upper abdominal pain. No nausea vomiting. No diarrhea. GENITOURINARY: Some dysuria. FEMALE GENITOURINARY: Denies vaginal bleeding, abnormal or irregular periods. LMP: MUSCULOSKELETAL: Right-sided back and flank pain. SKIN: Denies rash or skin lesions. NEUROLOGICAL: Denies altered mental status or loss of consciousness. Denies headache. Denies weakness or paralysis or loss of use of either side. Denies problems with gait or speech. Denies sensory or motor loss. ALL OTHER SYSTEMS REVIEWED AND NEGATIVE. Physical Exam - Vital signs Vitals: Temp Pulse Resp BP Pulse Ox 98.5 F 64 16 137/82 H 99 06/03/17 20:46 06/03/17 20:46 06/03/17 20:46 06/03/17 20:46 06/03/17 20:46 - Notes Notes: General Appearance: Well nourished, alert, cooperative, no acute distress, mild to moderate obvious discomfort. Vitals: reviewed, See vital signs table. Head: no swelling or tenderness to the head Eyes: PERRL, EOMI, Conjuctiva clear Mouth: No decreasd moisture Lungs: No wheezing, No rales, No rhonci, No accessory muscle use, good air exchange bilaterally. Heart: Normal rate, Regular rythm, No murmur, no rub Abdomen: Normal BS, soft, No rigidity, easily reproducible pain to palpation from the right back around the right flank and into the right upper quadrant of the abdomen and epigastric region., No guarding, no rebound, no abdominal masses , no organomegaly Extremities: strength 5/5 in all extremities, good pulses in all extremities, no swelling or tenderness in the extremities, no edema. Skin: warm, dry, appropriate color, no rash. No shingles like lesions on the skin of the back, flank, or abdomen. Neuro: speech clear, oriented x 3, normal affect, responds appropriately to questions. Course - Re-evaluation Re-evalutation: 06/04/17 05:39 Patient's pain is improving. Her urinalysis is negative. CT scan was negative. Pain is reproducible palpation. This may be musculoskeletal. Also informed her this could be early signs of shingles however there is no rash at this time to confirm that. Informed her that the exact cause is still 100% clear. I will send her urine for culture in case it does grow out infection. If this is positive then we will give her a call. Encouraged her return to ER immediately if she has worsening pain, fevers, or she feels unwell, or she develops a rash. Encouraged her follow-up closely with her doctor Wednesday for reevaluation. Patient agrees with plan will be discharged home. Dictation of this chart was performed using voice recognition software; therefore, there may be some unintended grammatical errors. 06/04/17 05:40 - Vital Signs Vital signs: Temp Pulse Resp BP Pulse Ox 98.2 F 71 18 130/83 H 99 06/04/17 01:04 06/04/17 01:04 06/03/17 21:20 06/04/17 01:04 06/03/17 20:46 - Laboratory Result Diagrams: 06/03/17 23:20 06/03/17 23:20 Laboratory results interpreted by me: 06/03/17 06/03/17 06/03/17 20:55 23:20 23:20 RDW 16.8 H BUN 5 L AST 13 L Urine Blood SMALL H Urine Urobilinogen 2.0 H Discharge - Discharge Clinical Impression: Flank pain, acute Abdominal pain Qualifiers: Abdominal location: upper abdomen, unspecified Qualified Code(s): R10.10 - Upper abdominal pain, unspecified Condition: Good Disposition: HOME, SELF-CARE Additional Instructions: Please return to the ER immediately if you develop worsening pain, fevers, intractable vomiting, diarrhea, or feel unwell. Your urine today showed no signs of infection. I will still send your urine to have it cultured since you were having some dysuria. If the culture is positive we will call you. Your CT scan was normal. Please follow up with your doctor on Wednesday for reevaluation. Sometimes the pain you are having can be a precursor to shingles. Please return to the ER if you develop a rash. Prescriptions: Tramadol HCl [Ultram] 50 mg PO Q6 PRN #14 tablet PRN Reason: pain Forms: Return to Work
[2017-06-03 23:30] LABS: ABSOLUTE BASOPHILS # (AUTO) 0.1 10^3/uL (0.0-0.2); ABSOLUTE LYMPHOCYTES (AUTO) 2.2 10^3/uL (0.5-4.7); ABSOLUTE MONOCYTES (AUTO) 0.6 10^3/uL (0.1-1.4); ABSOLUTE NEUT (AUTO) 4.3 10^3/uL (1.7-8.2); BASOPHILS % (AUTO) 1.1 % (0-2); EOSINOPHILS % (AUTO) 0.4 % (0-6); HEMOGLOBIN 12.9 g/dL (12.0-15.5); HGB HCT DIFFERENCE -1.3; LYMPHOCYTES % (AUTO) 30.5 % (13-45); MEAN CORPUSCULAR HEMOGLOBIN 27.4 pg (27.0-33.4); MEAN CORPUSCULAR HGB CONC 32.2 g/dL (32.0-36.0); MEAN CORPUSCULAR VOLUME 85 fl (80-97); MONOCYTES % (AUTO) 8.8 % (3-13); RED BLOOD COUNT 4.71 10^6/uL (3.72-5.28); RED CELL DISTRIBUTION WIDTH 16.8 % (11.5-14.0); SEGMENTED NEUTROPHILS % (AUTO) 59.2 % (42-78); WHITE BLOOD COUNT 7.2 10^3/uL (4.0-10.5)
[2017-06-03 23:49] LABS: ALANINE AMINOTRANSFERASE 33 U/L (9-52); ALBUMIN 4.1 g/dL (3.5-5.0); ALKALINE PHOSPHATASE 120 U/L (38-126); ANION GAP 14 (5-19); ASPARTATE AMINO TRANSFERASE 13 U/L (14-36); BILIRUBIN,DIRECT 0.4 mg/dL (0.0-0.4); BILIRUBIN,TOTAL 0.4 mg/dL (0.2-1.3); BLOOD UREA NITROGEN 5 mg/dL (7-20); CALCIUM 9.7 mg/dL (8.4-10.2); CARBON DIOXIDE 27 mmol/L (22-30); CHLORIDE 104 mmol/L (98-107); CREATININE RESULT 0.63 mg/dL (0.52-1.25); GLUCOSE 108 mg/dL (75-110); POTASSIUM 3.9 mmol/L (3.6-5.0); SODIUM 144.7 mmol/L (137-145); TOTAL PROTEIN 7.2 g/dL (6.3-8.2)
[2017-06-04] MEDS ORDERED: TRAMADOL HCL 50 MG TABLET PO ONE (00:42)
[2017-06-04 01:15] VITALS: BP 130/83
== END 2017-06-04 01:04 | disposition home or self-care (01) ==
LOC: ER 19:46
DX: R10.11 Right upper quadrant pain (principal); R10.13 Epigastric pain; R30.0 Dysuria; Z87.442 Personal history of urinary calculi; Z91.013 Allergy to seafood; Z87.892 Personal history of anaphylaxis; Z91.018 Allergy to other foods; Z87.19 Personal history of other diseases of the digestive system; Z90.49 Acquired absence of other specified parts of digestive tract; Z90.710 Acquired absence of both cervix and uterus; Z98.51 Tubal ligation status
CPT/HCPCS: 36415; 76380; 80053; 81001; 81025; 83690; 85025; 99284

== ENCOUNTER 2017-07-04 22:12 | Emergency (ER) | payer MEDICAID ==
[2017-07-04] MEDS ORDERED: MORPHINE SULFATE 10 MG/ML INJ IV ONE (22:59)
[2017-07-04] MEDS ORDERED: NORMAL SALINE 1000 ML 1,000 ML IV ONE (22:59)
[2017-07-04] MEDS ORDERED: ONDANSETRON HCL INJ/PF 4 MG/2 ML SDV IV ONE (22:59)
--- NOTE | 2017-07-04 23:02 | ER Document Report ---
ED General - General Chief Complaint: Abdominal Pain Stated Complaint: ABDOMINAL PAIN Time Seen by Provider: 07/04/17 22:54 Notes: Patient is a 42-year-old female who presents with complaint of vomiting and diarrhea and abdominal pain. She says abdominal pain is in the central portion of her abdomen. She has had hernia repair in this area once before. Also has a history of hysterectomy. She says she thinks there is a mesh in place there. No blood in the stool. No blood in emesis. No fevers. 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 No recent antibiotic use. No other complaints at this time. TRAVEL OUTSIDE OF THE [place] IN LAST 30 DAYS: No - Related Data Allergies/Adverse Reactions: ethinyl estradiol [From Ortho Tri-Cyclen LO (28)] Adverse Reaction (Verified 01:33) Nausea, Itching norgestimate [From Ortho Tri-Cyclen LO (28)] Adverse Reaction (Verified 01:33) Nausea, Itching shrimp Allergy (Severe, Uncoded 07/05/17 01:33) n and v mushrooms Allergy (Uncoded 07/05/17 01:33) Anaphylaxis, Headache Past Medical History - Social History Smoking Status: Never Smoker Frequency of alcohol use: None Drug Abuse: None Family History: Arthritis, DM, Hypertension, Malignancy, Thyroid Disfunction, Other - PE on Fathers side Patient has suicidal ideation: No Patient has homicidal ideation: No - Past Medical History Cardiac Medical History: Reports: Hx Heart Murmur Denies: Hx Atrial Fibrillation, Hx Congestive Heart Failure, Hx Coronary Artery Disease, Hx Heart Attack, Hx Hypercholesterolemia, Hx Hypertension, Hx Peripheral Vascular Disease Pulmonary Medical History: Neurological Medical History: Reports: Hx Cerebrovascular Accident - mild 2013, Hx Migraine. Denies: Hx Seizures Renal/ Medical History: Denies: Hx End Stage Renal Disease, Hx Kidney Stones, Hx Ovarian Cysts, Hx Peritoneal Dialysis, Hx Pelvic Inflammatory Disease Malignancy Medical History: Denies: Hx Breast Cancer, Hx Cervical Cancer, Hx Leukemia, Hx Ovarian Cancer GI Medical History: Reports: Hx Gastroesophageal Reflux Disease - occ.. Denies : Hx Crohn's Disease, Hx Hiatal Hernia, Hx Irritable Bowel, Hx Liver Failure, Hx Pancreatitis, Hx Ulcer Musculoskeltal Medical History: Reports Hx Arthritis - RA, Denies Hx Fibromyalgia, Denies Hx Multiple Sclerosis, Denies Hx Muscular Dystrophy, Reports Hx Musculoskeletal Trauma Psychiatric Medical History: Reports: Hx Depression Denies: Hx Bipolar Disorder, Hx Dementia, Hx Post Traumatic Stress Disorder, Hx Schizophrenia Traumatic Medical History: Reports: Hx Fractures - Coccyx Infectious Medical History: Denies: Hx HIV Past Surgical History: Reports: Hx Abdominal Surgery - umbilical hernia x2, Hx Section - x1, Hx Cholecystectomy - 2005, Hx Herniorrhaphy - umbilical hernia repair x2, Hx Hysterectomy, Hx Orthopedic Surgery - knee replacement, Hx Tubal Ligation, Hx Umbilical Hernia. Denies: Hx Appendectomy, Hx Bowel Surgery , Hx Colostomy, Hx Coronary Artery Bypass Graft, Hx Gastric Bypass Surgery, Hx Mastectomy, Hx Pacemaker, Hx Tonsillectomy - Immunizations Hx Diphtheria, Pertussis, Tetanus Vaccination: Yes Review of Systems - Review of Systems Notes: My Normal Review Basic REVIEW OF SYSTEMS: CONSTITUTIONAL : Denies fever, chills, or sweats. Denies recent illness. EENT: Denies eye, ear, throat, or mouth pain or symptoms. Denies nasal or sinus congestion. CARDIOVASCULAR: Denies chest pain. RESPIRATORY: Denies cough, cold, or chest congestion. Denies shortness of breath, difficulty breathing, or wheezing. GASTROINTESTINAL: Some central abdominal pain. Some vomiting and diarrhea. MUSCULOSKELETAL: Denies neck or back pain or joint pain or swelling. SKIN: Denies rash or skin lesions. NEUROLOGICAL: Denies altered mental status or loss of consciousness. Denies headache. Denies weakness or paralysis or loss of use of either side. Denies problems with gait or speech. Denies sensory or motor loss. ALL OTHER SYSTEMS REVIEWED AND NEGATIVE. Physical Exam - Vital signs Vitals: Temp Pulse Resp BP Pulse Ox 98.6 F 60 16 105/60 99 07/04/17 22:33 07/04/17 22:33 07/04/17 22:33 07/04/17 22:33 07/04/17 22:33 - Notes Notes: General Appearance: Well nourished, alert, cooperative, no acute distress, no obvious discomfort. Vitals: reviewed, See vital signs table. Head: no swelling or tenderness to the head Eyes: PERRL, EOMI, Conjuctiva clear Mouth: No decreasd moisture Neck: Supple, no neck tenderness Lungs: No wheezing, No rales, No rhonci, No accessory muscle use, good air exchange bilaterally. Heart: Normal rate, Regular rythm, No murmur, no rub Abdomen: Normal BS, soft, No rigidity, mild to moderate central abdominal tenderness outpatient, No guarding, no rebound, no palpable hernia. Extremities: strength 5/5 in all extremities, good pulses in all extremities, no swelling or tenderness in the extremities, no edema. Skin: warm, dry, appropriate color, no rash Neuro: speech clear, oriented x 3, normal affect, responds appropriately to questions. Course - Re-evaluation Re-evalutation: 07/05/17 01:13 Patient is feeling improved. Nausea is improved. She still does have some pain over the periumbilical ventral portion of her abdomen. When I palpate this area she still has significant pain. I will obtain a CT scan to rule out possible recurrence or hernia. I do not feel any bowel hernia currently on exam however she does have an obese abdomen and it is difficult to tell for sure that there is not any recurrence of herniation. 07/05/17 02:12 CT scan was negative. Patient continues to look well and has no further vomiting. Patient does work in a [employer] facility and therefore she is at high risk for C. difficile. Currently she is not septic or toxic. She has no elevated white blood cell count. There is no need for hospitalization at this time. I will place her on Flagyl due to risk for C. difficile and the recurrent diarrhea that she has been having. I will give her a few days off work. I strongly encouraged her return to ER immediately if she has recurrent vomiting, worsening abdominal pain, or if she feels unwell. Patient was unable to give us a stool sample here and therefore we will cover for the C. difficile since we cannot rule out with a stool sample. - Vital Signs Vital signs: Temp Pulse Resp BP Pulse Ox 97.4 F 58 L 18 107/59 L 98 07/05/17 02:00 07/05/17 02:00 07/05/17 02:00 07/05/17 02:00 07/05/17 02:00 - Laboratory Result Diagrams: 07/04/17 23:04 07/04/17 23:04 Laboratory results interpreted by me: 07/04/17 07/04/17 23:04 23:04 RDW 15.9 H Carbon Dioxide 32 H Discharge - Discharge Clinical Impression: Vomiting and diarrhea Abdominal pain Qualifiers: Abdominal location: periumbilical Qualified Code(s): R10.33 - Periumbilical pain Condition: Good Disposition: HOME, SELF-CARE Additional Instructions: We will place you on Flagyl to cover for the possibility of C. difficile as potential cause of the diarrhea being that you do work in a [employer] environment. Please take this antibiotic as prescribed. I have also prescribed you Zofran to help with your nausea. Please drink noncaffeinated liquids for the next 24 hours. After that progress to a bland diet. Return to ER immediately for fevers, intractable vomiting, worsening pain, or blood in your stool. Follow-up with your doctor in 2 days for reevaluation. Prescriptions: Metronidazole [Flagyl 500 mg Tablet] 500 mg PO Q6H #28 tablet Ondansetron [Zofran Odt 4 mg Tablet] 1 tab PO Q4H PRN #15 tab.rapdis PRN Reason: For Nausea/Vomiting Forms: Return to Work
[2017-07-04 23:35] LABS: ABSOLUTE BASOPHILS # (AUTO) 0.1 10^3/uL (0.0-0.2); ABSOLUTE LYMPHOCYTES (AUTO) 2.3 10^3/uL (0.5-4.7); ABSOLUTE MONOCYTES (AUTO) 0.7 10^3/uL (0.1-1.4); ABSOLUTE NEUT (AUTO) 3.2 10^3/uL (1.7-8.2); BASOPHILS % (AUTO) 0.8 % (0-2); EOSINOPHILS % (AUTO) 0.6 % (0-6); HEMATOCRIT 38.8 % (36.0-47.0); HEMOGLOBIN 12.7 g/dL (12.0-15.5); HGB HCT DIFFERENCE -0.7; LYMPHOCYTES % (AUTO) 36.5 % (13-45); MEAN CORPUSCULAR HGB CONC 32.8 g/dL (32.0-36.0); MEAN CORPUSCULAR VOLUME 85 fl (80-97); MONOCYTES % (AUTO) 10.6 % (3-13); RED BLOOD COUNT 4.54 10^6/uL (3.72-5.28); RED CELL DISTRIBUTION WIDTH 15.9 % (11.5-14.0); SEGMENTED NEUTROPHILS % (AUTO) 51.5 % (42-78); WHITE BLOOD COUNT 6.3 10^3/uL (4.0-10.5)
[2017-07-04 23:38] LABS: ALANINE AMINOTRANSFERASE 20 U/L (9-52); ALBUMIN 3.7 g/dL (3.5-5.0); ALKALINE PHOSPHATASE 110 U/L (38-126); ANION GAP 7 (5-19); ASPARTATE AMINO TRANSFERASE 14 U/L (14-36); BILIRUBIN,DIRECT 0.2 mg/dL (0.0-0.4); BILIRUBIN,TOTAL 0.3 mg/dL (0.2-1.3); BLOOD UREA NITROGEN 9 mg/dL (7-20); CALCIUM 9.3 mg/dL (8.4-10.2); CARBON DIOXIDE 32 mmol/L (22-30); CHLORIDE 106 mmol/L (98-107); CREATININE RESULT 0.74 mg/dL (0.52-1.25); GLUCOSE 97 mg/dL (75-110); LIPASE 162.1 U/L (23-300); POTASSIUM 4.2 mmol/L (3.6-5.0); SODIUM 144.6 mmol/L (137-145); TOTAL PROTEIN 6.5 g/dL (6.3-8.2)
[2017-07-05 02:00] VITALS: BP 107/59
--- NOTE | 2017-07-05 02:01 | RADIOLOGY REPORT (SQ) ---
EXAM DESCRIPTION: CT ABD/PELVIS WITH IV ONLY COMPLETED DATE/TIME: 07/05/2017 1:41 am REASON FOR STUDY: periumbilical pain with history of previous hernia . Prior hysterectomy. Prior c holecystectomy in 2004. Hernia repair x2 in 2001 and 2002. COMPARISON: CT abdomen and pelvis 06/03/2017, 04/16/2017. TECHNIQUE: CT scan of the abdomen and pelvis performed using helical scanning technique with dynamic intravenous contrast injection. No oral contrast. Images reviewed with lung, soft tissue, and bone windows. Reconstructed coronal and sagittal MPR images reviewed. Delayed images for evaluation of the urinary system also acquired. All images stored on PACS. All CT scanners at this facility use dose modulation, iterative reconstruction, and/or weight based d osing when appropriate to reduce radiation dose to as low as reasonably achievable (ALARA). [facility]: Dose Right [facility]: CareDose [facility]: Dose Right [facility]: Teradose 4D [facility]: Synchronicity.co CONTRAST TYPE AND DOSE: contrast/concentration: Isovue 370.00 mg/ml; Total Contrast Delivered: 100.0 ml; Total Saline Delivered: 72.0 ml RENAL FUNCTION: Creatinine 0.74 RADIATION DOSE: Up-to-date CT equipment and radiation dose reduction techniques were employed. CTDIv ol: 20.3 - 21.0 mGy. DLP: 2366 mGy-cm.. LIMITATIONS: None. FINDINGS: LOWER CHEST: No consolidation or pleural effusion. LIVER: Normal size. No masses. Mild intrahepatic biliary ductal dilation. SPLEEN: Normal size. PANCREAS: No significant calcifications. No adjacent inflammation or peripancreatic fluid collections . Pancreatic duct not dilated. GALLBLADDER: Surgically absent. The common bile duct is upper normal limit in size at 6 mm. ADRENAL GLANDS: No significant masses or asymmetry. RIGHT KIDNEY AND URETER: No solid masses. No significant calcifications. No hydronephrosis or hyd roureter. LEFT KIDNEY AND URETER: No solid masses. No significant calcifications. No hydronephrosis or hydr oureter. AORTA AND VESSELS: No abdominal aortic aneurysm. RETROPERITONEUM: No retroperitoneal adenopathy, hemorrhage or masses. BOWEL AND PERITONEAL CAVITY: No dilated bowel loops or inflammatory changes. No free fluid or free ai r. APPENDIX: Normal. PELVIS: The urinary bladder is partially decompressed. The uterus is surgically absent. No free flu id. ABDOMINAL WALL: Small fat containing umbilical hernia and small fat containing ventral hernias. The patient is status post ventral hernia repair with mesh placement. There is a 10.5 x 6.7 cm lipoma in the upper right lateral abdominal wall. BONES: There is increased sclerosis at the sacroiliac joints. IMPRESSION: Mild intrahepatic biliary ductal dilation status post remote cholecystectomy. Otherwise , no acute findings in the abdomen or pelvis. Increased sclerosis at the sacroiliac joints, may be seen with sacroiliitis. TECHNICAL DOCUMENTATION: JOB ID: [id number] [facility] Quality ID # [id number]: Final reports with documentation of one or more dose reduction techniques (e.g., Au tomated exposure control, adjustment of the mA and/or kV according to patient size, use of iterative reconstruction technique) 2010 [employer]- All Rights Reserved
[2017-07-05] MEDS ORDERED: ONDANSETRON ODT 4 MG TAB (6 TAB/DSPK) PO PRN (02:15)
[2017-07-05] MEDS ORDERED: METRONIDAZOLE 500 MG TABLET PO ONE (02:15)
== END 2017-07-05 02:35 | disposition home or self-care (01) ==
LOC: ER 22:12
DX: R11.10 Vomiting, unspecified (principal); R19.7 Diarrhea, unspecified; R10.33 Periumbilical pain
CPT/HCPCS: 99284; 96361; 96374; 96375; 36415; 83690; 85025; 80053; 74177; J2270; J2405; J3490; J7030

== ENCOUNTER 2017-10-29 18:37 | Emergency (ER) | payer MEDICAID ==
[2017-10-29 18:56] VITALS: BP 128/74
[2017-10-29] MEDS ORDERED: OXYCODONE-ACETAMINOPHEN 5-325 MG TABLET PO ONE (19:30)
--- NOTE | 2017-10-29 19:33 | ER Document Report ---
HPI - HPI Patient complains to provider of: Right knee pain Onset: Yesterday Onset/Duration: Sudden Quality of pain: Sharp Pain Level: 4 Context: Patient states she was sitting in a chair and her friend started to fall. Patient states that her friends hand landed on her knee and pushed her knee into the metal frame of the chair she was sitting in. Patient complains of increased right knee pain since then. Patient does have a history of previous knee replacement to this knee. Associated Symptoms: Other - Right knee pain Exacerbated by: Standing, Movement, Walking Relieved by: Denies Similar symptoms previously: No Recently seen / treated by doctor: No - ROS ROS below otherwise negative: Yes Systems Reviewed and Negative: Yes All other systems reviewed and negative - REPRODUCTIVE Reproductive: DENIES: : - MUSCULOSKELETAL Musculoskeletal: REPORTS: Extremity pain - DERM Skin Color: Normal Skin Problems: None Past Medical History - General Information source: Patient - Social History Smoking Status: Current Every Day Smoker Smoking Education Provided: Yes Frequency of alcohol use: None Drug Abuse: None 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 Denies: Hx Seizures Renal/ Medical History: Denies: Hx End Stage Renal Disease, Hx Kidney Stones, Hx Ovarian Cysts, Hx Peritoneal Dialysis, Hx Pelvic Inflammatory Disease Malignancy Medical History: Denies: Hx Breast Cancer, Hx Cervical Cancer, Hx Leukemia, Hx Ovarian Cancer GI Medical History: Reports: Hx Gastroesophageal Reflux Disease - occ.. Denies : Hx Crohn's Disease, Hx Hiatal Hernia, Hx Irritable Bowel, Hx Liver Failure, Hx Pancreatitis, Hx Ulcer Musculoskeltal Medical History: Reports Hx Arthritis - RA, Denies Hx Fibromyalgia, Denies Hx Multiple Sclerosis, Denies Hx Muscular Dystrophy, Reports Hx Musculoskeletal Trauma Psychiatric Medical History: Reports: Hx Depression Denies: Hx Bipolar Disorder, Hx Dementia, Hx Post Traumatic Stress Disorder, Hx Schizophrenia Traumatic Medical History: Reports: Hx Fractures - Coccyx Infectious Medical History: Denies: Hx HIV Past Surgical History: Reports: Hx Abdominal Surgery - umbilical hernia x2, Hx Section - x1, Hx Cholecystectomy - 2005, Hx Herniorrhaphy - umbilical hernia repair x2, Hx Hysterectomy, Hx Orthopedic Surgery - knee replacement, Hx Tubal Ligation, Hx Umbilical Hernia. Denies: Hx Appendectomy, Hx Bowel Surgery , Hx Colostomy, Hx Coronary Artery Bypass Graft, Hx Gastric Bypass Surgery, Hx Mastectomy, Hx Pacemaker, Hx Tonsillectomy - Immunizations Hx Diphtheria, Pertussis, Tetanus Vaccination: Yes Vertical Provider Document - CONSTITUTIONAL Agree With Documented VS: Yes Exam Limitations: No Limitations General Appearance: WD/WN, No Apparent Distress - INFECTION CONTROL TRAVEL OUTSIDE OF THE [place] IN LAST 30 DAYS: No - HEENT HEENT: Atraumatic, Normocephalic - NECK Neck: Normal Inspection - RESPIRATORY Respiratory: No Respiratory Distress O2 Sat by Pulse Oximetry: 98 - CARDIOVASCULAR Pulses: Normal: Dorsalis pedis - MUSCULOSKELETAL/EXTREMETIES Musculoskeletal/Extremeties: MAEW, Tender - Right knee joint tenderness to lateral and inferior compartment, normal skin color overlying joint. Linear scar over right knee. No laxity with varus or valgus maneuvers. - NEURO Level of Consciousness: Awake, Alert, Appropriate Motor/Sensory: No Motor Deficit - DERM Integumentary: Warm, Dry Course - Re-evaluation Re-evalutation: 10/29/17 19:31 Controlled substance database reviewed - Vital Signs Vital signs: Temp Pulse Resp BP Pulse Ox 98.1 F 65 18 128/74 H 98 10/29/17 18:55 10/29/17 18:55 10/29/17 18:55 10/29/17 18:55 10/29/17 18:55 - Diagnostic Test Radiology reviewed: Pending, Image reviewed Procedures - Immobilization Right Knee Pre-Proc Neuro Vasc Exam: Normal Immobilizer type: Knee immobilizer Performed by: PCT Post-Proc Neuro Vasc Exam: Normal Alignment checked and good: Yes Discharge - Discharge Clinical Impression: Right knee sprain Qualifiers: Encounter type: initial encounter Involved ligament of knee: unspecified ligament Qualified Code(s): S83.91XA - Sprain of unspecified site of right knee , initial encounter Condition: Stable Disposition: HOME, SELF-CARE Instructions: Use of Crutches ([facility]), Ice & Elevation ([facility]), Knee Immobilizing Splint ([facility]), Oral Narcotic Medication ([facility]), Sprained Knee ([facility]) Additional Instructions: Return immediately for any new or worsening symptoms Followup with your primary care provider, call tomorrow to make a followup appointment Follow-up with your orthopedic surgeon for recheck, call Wednesday for an appointment Prescriptions: Oxycodone HCl/Acetaminophen [Percocet 5-325 mg Tablet] 1 tab PO ASDIR PRN #12 tablet PRN Reason: Forms: Smoking Cessation Education, Return to Work Referrals: TOM YI MD [Primary Care Provider] - Follow up as needed
--- NOTE | 2017-10-29 19:36 | RADIOLOGY REPORT (SQ) ---
EXAM DESCRIPTION: KNEE RIGHT 4 VIEWS COMPLETED DATE/TIME: 10/29/2017 7:11 pm REASON FOR STUDY: injury COMPARISON: None. NUMBER OF VIEWS: Four views. TECHNIQUE: AP, lateral, and both oblique radiographic images acquired of the right knee. LIMITATIONS: None. FINDINGS: MINERALIZATION: Normal. BONES: A total knee arthroplasty in good position. JOINT: See above SOFT TISSUES: No soft tissue swelling. No radio-opaque foreign body. OTHER: No other significant finding. IMPRESSION: NEGATIVE STUDY OF THE RIGHT KNEE. NO RADIOGRAPHIC EVIDENCE OF ACUTE INJURY. TECHNICAL DOCUMENTATION: JOB ID: [id number] [employer]- All Rights Reserved Reading location - IP/workstation name: [email or web address]
== END 2017-10-29 20:08 | disposition home or self-care (01) ==
LOC: ER 18:37
DX: S83.91XA Sprain of unspecified site of right knee, initial encounter (principal); F17.200 Nicotine dependence, unspecified, uncomplicated; W07.XXXA Fall from chair, initial encounter; Z86.73 Personal history of transient ischemic attack (TIA), and cerebral infarction without residual deficits; Z90.49 Acquired absence of other specified parts of digestive tract; Z90.710 Acquired absence of both cervix and uterus; Z98.51 Tubal ligation status
CPT/HCPCS: 99283; 73564; L1830

== ENCOUNTER 2017-12-23 18:25 | Emergency (ER) | payer MEDICAID, OTHER ==
[2017-12-23 18:47] VITALS: BP 124/75
[2017-12-23] MEDS ORDERED: METOCLOPRAMIDE HCL INJ/PF 10 MG/2 ML SDV IV ONE (19:26)
[2017-12-23] MEDS ORDERED: DIPHENHYDRAMINE HCL 50 MG/ML VIAL IV ONE (19:26)
[2017-12-23] MEDS ORDERED: NORMAL SALINE 1000 ML 1,000 ML IV ONE (19:27)
--- NOTE | 2017-12-23 19:29 | ER Document Report ---
ED Medical Screen (RME) - General Chief Complaint: Near Syncope Stated Complaint: SYNCOPE Time Seen by Provider: 12/23/17 19:22 Notes: RAPID MEDICAL EVALUATION DISCLOSURE I have seen this patient as part of a Rapid Medical Evaluation and, if applicable, placed any initially appropriate orders. The patient will be seen and fully evaluated, including a full history and physical exam, by a provider ( in Main ED or Fast Track) when a room becomes available. 42-year-old female here with 3 days of cough congestion runny nose sore throat headaches body aches nausea vomiting diarrhea and for the past 2 days has been feeling very lightheaded. Earlier today at work, she had an episode of syncope and reports that she was out for approximately 10 minutes. She has been unable to keep down much fluids. Has been using some Chloraseptic spray for her symptoms with good relief. Denies any known sick contacts. Immunizations up-to -date, she reports. EXAM Actively vomiting in triage Mild diffuse coarse breath sounds TRAVEL OUTSIDE OF THE [place] IN LAST 30 DAYS: No - Related Data Allergies/Adverse Reactions: ethinyl estradiol [From Ortho Tri-Cyclen LO (28)] Adverse Reaction (Verified 11/07 18:32) Nausea, Itching norgestimate [From Ortho Tri-Cyclen LO (28)] Adverse Reaction (Verified 18:32) Nausea, Itching shrimp Allergy (Severe, Uncoded 12/23/17 18:32) n and v mushrooms Allergy (Uncoded 12/23/17 18:32) Anaphylaxis, Headache Past Medical History - Past Medical History Cardiac Medical History: Reports: Hx Heart Murmur Denies: Hx Atrial Fibrillation, Hx Congestive Heart Failure, Hx Coronary Artery Disease, Hx Heart Attack, Hx Hypercholesterolemia, Hx Hypertension, Hx Peripheral Vascular Disease Pulmonary Medical History: Neurological Medical History: Reports: Hx Cerebrovascular Accident - mild 2013, Hx Migraine. Denies: Hx Seizures Renal/ Medical History: Denies: Hx End Stage Renal Disease, Hx Kidney Stones, Hx Ovarian Cysts, Hx Peritoneal Dialysis, Hx Pelvic Inflammatory Disease Malignancy Medical History: Denies: Hx Breast Cancer, Hx Cervical Cancer, Hx Leukemia, Hx Ovarian Cancer GI Medical History: Reports: Hx Gastroesophageal Reflux Disease - occ.. Denies : Hx Crohn's Disease, Hx Hiatal Hernia, Hx Irritable Bowel, Hx Liver Failure, Hx Pancreatitis, Hx Ulcer Musculoskeltal Medical History: Reports Hx Arthritis - RA, Denies Hx Fibromyalgia, Denies Hx Multiple Sclerosis, Denies Hx Muscular Dystrophy, Reports Hx Musculoskeletal Trauma Psychiatric Medical History: Reports: Hx Depression Denies: Hx Bipolar Disorder, Hx Dementia, Hx Post Traumatic Stress Disorder, Hx Schizophrenia Traumatic Medical History: Reports: Hx Fractures - Coccyx Infectious Medical History: Denies: Hx HIV Past Surgical History: Reports: Hx Abdominal Surgery - umbilical hernia x2, Hx Section - x1, Hx Cholecystectomy - 2005, Hx Herniorrhaphy - umbilical hernia repair x2, Hx Hysterectomy, Hx Orthopedic Surgery - knee replacement, Hx Tubal Ligation, Hx Umbilical Hernia. Denies: Hx Appendectomy, Hx Bowel Surgery , Hx Colostomy, Hx Coronary Artery Bypass Graft, Hx Gastric Bypass Surgery, Hx Mastectomy, Hx Pacemaker, Hx Tonsillectomy - Immunizations Hx Diphtheria, Pertussis, Tetanus Vaccination: Yes History of Influenza Vaccine for 05/2017 - 10/2017 Season: No Physical Exam - Vital signs Vitals: Temp Pulse Resp BP Pulse Ox 98.0 F 61 16 124/75 98 12/23/17 18:45 12/23/17 18:45 12/23/17 18:45 12/23/17 18:45 12/23/17 18:45 Course - Vital Signs Vital signs: Temp Pulse Resp BP Pulse Ox 98.0 F 61 16 124/75 98 12/23/17 18:45 12/23/17 18:45 12/23/17 18:45 12/23/17 18:45 12/23/17 18:45
[2017-12-23 20:08] LABS: A TYPE INFLUENZA AG NEGATIVE (NEGATIVE); B INFLUENZA AG NEGATIVE (NEGATIVE)
--- NOTE | 2017-12-23 20:21 | RADIOLOGY REPORT (SQ) ---
EXAM DESCRIPTION: CHEST 2 VIEWS COMPLETED DATE/TIME: 12/23/2017 8:04 pm REASON FOR STUDY: cough; eval pna COMPARISON: 12/20/2015 EXAM PARAMETERS: NUMBER OF VIEWS: two views TECHNIQUE: Digital Frontal and Lateral radiographic views of the chest acquired. RADIATION DOSE: NA LIMITATIONS: none FINDINGS: LUNGS AND PLEURA: No opacities, masses or pneumothorax. No pleural effusion. MEDIASTINUM AND HILAR STRUCTURES: No masses or contour abnormalities. HEART AND VASCULAR STRUCTURES: Heart normal size. No evidence for failure. BONES: No acute findings. HARDWARE: None in the chest. OTHER: No other significant finding. IMPRESSION: NO ACUTE RADIOGRAPHIC FINDING IN THE CHEST. TECHNICAL DOCUMENTATION: JOB ID: [id number] [employer]- All Rights Reserved Reading location - IP/workstation name: [email or web address]
[2017-12-23 20:51] LABS: ABSOLUTE LYMPHOCYTES (AUTO) 2.4 10^3/uL (0.5-4.7); ABSOLUTE MONOCYTES (AUTO) 0.6 10^3/uL (0.1-1.4); BASOPHILS % (AUTO) 0.6 % (0-2); EOSINOPHILS % (AUTO) 0.2 % (0-6); HEMATOCRIT 38.8 % (36.0-47.0); HEMOGLOBIN 12.9 g/dL (12.0-15.5); LYMPHOCYTES % (AUTO) 39.7 % (13-45); MEAN CORPUSCULAR HEMOGLOBIN 28.6 pg (27.0-33.4); MEAN CORPUSCULAR HGB CONC 33.4 g/dL (32.0-36.0); MEAN CORPUSCULAR VOLUME 86 fl (80-97); MONOCYTES % (AUTO) 9.3 % (3-13); PLATELET COUNT 319 10^3/uL (150-450); RED BLOOD COUNT 4.53 10^6/uL (3.72-5.28); RED CELL DISTRIBUTION WIDTH 15.3 % (11.5-14.0); SEGMENTED NEUTROPHILS % (AUTO) 50.2 % (42-78); TOTAL CELLS COUNTED % (AUTO) 100 %
[2017-12-23 21:13] LABS: ANION GAP 14 (5-19); BLOOD UREA NITROGEN 8 mg/dL (7-20); CALCIUM 9.2 mg/dL (8.4-10.2); CARBON DIOXIDE 27 mmol/L (22-30); CHLORIDE 104 mmol/L (98-107); GLUCOSE 99 mg/dL (75-110); POTASSIUM 4.6 mmol/L (3.6-5.0); SODIUM 144.8 mmol/L (137-145)
--- NOTE | 2017-12-23 21:27 | ER Document Report ---
ED General - General Chief Complaint: Near Syncope Stated Complaint: SYNCOPE Time Seen by Provider: 12/23/17 19:22 Mode of Arrival: Ambulatory Information source: Patient Notes: 42-year-old female history of migraine headaches states she has had a migraine headache similar to her previous for the past 3 days, she admits to nausea associated with it denies any fevers or chills notes that she always has blurry vision and light sensitivity and noise sensitivity. Patient notes today while she was at work she was not feeling well and believes she may have passed out, since then patient notes her symptoms have improved with treatment in the emergency department. She denies any neurological deficits at this time patient is not on any blood thinners TRAVEL OUTSIDE OF THE [place] IN LAST 30 DAYS: No - HPI Onset: Other - 3 day duration Onset/Duration: Persistent Quality of pain: Achy Severity: Mild Pain Level: 1 Associated symptoms: Headache, Nausea Exacerbated by: Other Relieved by: Denies Similar symptoms previously: Yes Recently seen / treated by doctor: Yes - Related Data Allergies/Adverse Reactions: ethinyl estradiol [From Ortho Tri-Cyclen LO (28)] Adverse Reaction (Verified 11/07 18:32) Nausea, Itching norgestimate [From Ortho Tri-Cyclen LO (28)] Adverse Reaction (Verified 18:32) Nausea, Itching shrimp Allergy (Severe, Uncoded 12/23/17 18:32) n and v mushrooms Allergy (Uncoded 12/23/17 18:32) Anaphylaxis, Headache Past Medical History - Social History Smoking Status: Current Every Day Smoker Cigarette use (# per day): Yes Chew tobacco use (# tins/day): No Smoking Education Provided: No Family History: Arthritis, DM, Hypertension, Malignancy, Thyroid Disfunction, Other - PE on Fathers side Patient has suicidal ideation: No Patient has homicidal ideation: No - Past Medical History Cardiac Medical History: Reports: Hx Heart Murmur Denies: Hx Atrial Fibrillation, Hx Congestive Heart Failure, Hx Coronary Artery Disease, Hx Heart Attack, Hx Hypercholesterolemia, Hx Hypertension, Hx Peripheral Vascular Disease Pulmonary Medical History: Neurological Medical History: Reports: Hx Cerebrovascular Accident - mild 2013, Hx Migraine. Denies: Hx Seizures Renal/ Medical History: Denies: Hx End Stage Renal Disease, Hx Kidney Stones, Hx Ovarian Cysts, Hx Peritoneal Dialysis, Hx Pelvic Inflammatory Disease Malignancy Medical History: Denies: Hx Breast Cancer, Hx Cervical Cancer, Hx Leukemia, Hx Ovarian Cancer GI Medical History: Reports: Hx Gastroesophageal Reflux Disease - occ.. Denies : Hx Crohn's Disease, Hx Hiatal Hernia, Hx Irritable Bowel, Hx Liver Failure, Hx Pancreatitis, Hx Ulcer Musculoskeltal Medical History: Reports Hx Arthritis - RA, Denies Hx Fibromyalgia, Denies Hx Multiple Sclerosis, Denies Hx Muscular Dystrophy, Reports Hx Musculoskeletal Trauma Psychiatric Medical History: Reports: Hx Depression Denies: Hx Bipolar Disorder, Hx Dementia, Hx Post Traumatic Stress Disorder, Hx Schizophrenia Traumatic Medical History: Reports: Hx Fractures - Coccyx Infectious Medical History: Denies: Hx HIV Past Surgical History: Reports: Hx Abdominal Surgery - umbilical hernia x2, Hx Section - x1, Hx Cholecystectomy - 2005, Hx Herniorrhaphy - umbilical hernia repair x2, Hx Hysterectomy, Hx Orthopedic Surgery - knee replacement, Hx Tubal Ligation, Hx Umbilical Hernia. Denies: Hx Appendectomy, Hx Bowel Surgery , Hx Colostomy, Hx Coronary Artery Bypass Graft, Hx Gastric Bypass Surgery, Hx Mastectomy, Hx Pacemaker, Hx Tonsillectomy - Immunizations Hx Diphtheria, Pertussis, Tetanus Vaccination: Yes Review of Systems - Review of Systems Notes: REVIEW OF SYSTEMS: CONSTITUTIONAL : Denies fever, chills, or sweats. Denies recent illness. EENT: Denies eye, ear, throat, or mouth pain or symptoms. Denies nasal or sinus congestion or discharge. Denies throat, tongue, or mouth swelling or difficulty swallowing. CARDIOVASCULAR: Denies chest pain. Denies palpitations or racing or irregular heart beat. Denies ankle edema. RESPIRATORY: Denies cough, cold, or chest congestion. Denies shortness of breath, difficulty breathing, or wheezing. GASTROINTESTINAL: Denies abdominal pain or distention. Denies nausea, vomiting , or diarrhea. Denies blood in vomitus, stools, or per rectum. Denies black, tarry stools. Denies constipation. GENITOURINARY: Denies difficulty urinating, painful urination, burning, frequency, blood in urine, or discharge. FEMALE GENITOURINARY: Denies vaginal bleeding, heavy or abnormal periods, irregular periods. Denies vaginal discharge or odor. MUSCULOSKELETAL: Denies back or neck pain or stiffness. Denies joint pain or swelling. SKIN: Denies rash, lesions or sores. HEMATOLOGIC : Denies easy bruising or bleeding. LYMPHATIC: Denies swollen, enlarged glands. NEUROLOGICAL: Admits to headache PSYCHIATRIC: Denies anxiety or stress. Denies depression, suicidal ideation, or homicidal ideation. ALL OTHER SYSTEMS REVIEWED AND NEGATIVE. PHYSICAL EXAMINATION: GENERAL: Well-appearing, well-nourished and in no acute distress. HEAD: Atraumatic, normocephalic. EYES: Pupils equal round and reactive to light, extraocular movements intact, conjunctiva are normal. ENT: Nares patent, oropharynx clear without exudates. Moist mucous membranes. NECK: Normal range of motion, supple without lymphadenopathy LUNGS: Breath sounds clear to auscultation bilaterally and equal. No wheezes rales or rhonchi. HEART: Regular rate and rhythm without murmurs ABDOMEN: Soft, nontender, nondistended abdomen. No guarding, no rebound. No masses appreciated. Female : deferred Musculoskeletal: Normal range of motion, no pitting or edema. No cyanosis. NEUROLOGICAL: Cranial nerves grossly intact. Normal speech, normal gait. Normal sensory, motor exams PSYCH: Normal mood, normal affect. SKIN: Warm, Dry, normal turgor, no rashes or lesions noted. Dictation was performed using [employer] voice recognition software Physical Exam - Vital signs Vitals: Temp Pulse Resp BP Pulse Ox 98.0 F 61 16 124/75 98 12/23/17 18:45 12/23/17 18:45 12/23/17 18:45 12/23/17 18:45 12/23/17 18:45 Course - Re-evaluation Re-evalutation: Patient's examination is quite benign and she looks well is in no distress, on my evaluation patient is resting comfortably wishes to be discharged home, her neurological exam is normal, I offered a CT of the head which she defers on at this time, workup otherwise is benign as well. She states she has not been feeling well for the past week and believes she has had URI symptoms secondary from work. Lab work however notes no obvious bacterial infection influenza was negative 12/23/17 21:28 Patient is not on Xarelto 12/24/17 09:09 Patient given that she feels much better symptoms have resolved wishes to be discharged discharge with understand that she must return immediately if there is concerns which time we would do further imaging and workup. Patient states she understands After performing a Medical Screening Examination, I estimate there is LOW risk for ACUTE GLAUCOMA, TEMPORAL ARTERITIS, MENINGITIS, INCRANIAL HEMORRHAGE, or ISCHEMIC STROKE thus I consider the discharge disposition reasonable. I have reevaluated this patient multiple times and no significant life threatening changes are noted. The patient and I have discussed the diagnosis and risks, and we agree with discharging home with close follow-up with the understanding that symptoms and presentations can change. We also discussed returning to the Emergency Department immediately if new or worsening symptoms occur. We have discussed the symptoms which are most concerning (e.g., changing or worsening symptoms, new numbness or weakness, vomiting, fever) that necessitate immediate return. - Vital Signs Vital signs: Temp Pulse Resp BP Pulse Ox 98.0 F 61 16 124/75 98 12/23/17 18:45 12/23/17 18:45 12/23/17 18:45 12/23/17 18:45 12/23/17 18:45 - Laboratory Result Diagrams: 12/23/17 20:30 12/23/17 20:30 Laboratory results interpreted by me: 12/23/17 20:30 RDW 15.3 H - Diagnostic Test Radiology reviewed: Image reviewed - 2 view chest x-ray notes no acute abnormality, Reports reviewed Discharge - Discharge Clinical Impression: Migraine Qualifiers: Migraine type: unspecified Status migrainosus presence: without status migrainosus Intractability: not intractable Qualified Code(s): G43.909 - Migraine, unspecified, not intractable, without status migrainosus Syncope Qualifiers: Syncope type: unspecified Qualified Code(s): R55 - Syncope and collapse Condition: Stable Disposition: HOME, SELF-CARE Instructions: Migraine Headache ([facility]) Prescriptions: Promethazine HCl [Phenergan 25 mg Tablet] 1 - 2 tab PO Q6H PRN #15 tablet PRN Reason: Referrals: NIMCO DELUNA MD [Primary Care Provider] - Follow up tomorrow
== END 2017-12-23 22:46 | disposition home or self-care (01) ==
LOC: ER 18:25
DX: G43.909 Migraine, unspecified, not intractable, without status migrainosus (principal); R55 Syncope and collapse; R11.0 Nausea; F17.210 Nicotine dependence, cigarettes, uncomplicated; Z86.73 Personal history of transient ischemic attack (TIA), and cerebral infarction without residual deficits; Z90.49 Acquired absence of other specified parts of digestive tract; Z90.710 Acquired absence of both cervix and uterus
CPT/HCPCS: 99284; 96361; 96374; 96375; 36415; 85025; 80048; 87804; 71046; J1200; J2765; J7030

== ENCOUNTER 2018-01-07 09:37 | Emergency (ER) | payer SELFPAY ==
[2018-01-07 09:58] VITALS: BP 125/57
[2018-01-07] MEDS ORDERED: ONDANSETRON HCL INJ/PF 4 MG/2 ML SDV IV ONE (10:51)
[2018-01-07] MEDS ORDERED: NORMAL SALINE 1000 ML 1,000 ML IV ONE (10:51)
--- NOTE | 2018-01-07 10:56 | ER Document Report ---
ED GI/ - General Chief Complaint: Nausea/Vomiting/Diarrhea Stated Complaint: VOMITING/DIARRHEA Time Seen by Provider: 01/07/18 10:27 Mode of Arrival: Ambulatory Information source: Patient Notes: 42-year-old morbidly obese female presents to ED for complaint of nausea vomiting and diarrhea just on Wednesday. She states she also had some weakness as well. She states that yesterday she had a temperature 101.7 but is been afebrile today. She states she took Phenergan yesterday 2 and Motrin yesterday today she is only taken the Phenergan 1. She is alert and oriented respirations are regular and unlabored. She does not appear to be in any acute distress. She is speaking in full sentences pupils equal and react to light and is able to walk with a even steady gait. TRAVEL OUTSIDE OF THE [place] IN LAST 30 DAYS: No - HPI Patient complains to provider of: Abdominal pain, Diarrhea, Vomiting Onset: Other - Wednesday Timing/Duration: Intermittent Quality of pain: Cramping Severity at maximum: Moderate Severity in ED: Moderate Pain Level: 4 Location: Pelvis Vaginal bleeding (Compared to normal period): None LMP: Hysterectomy Associated symptoms: Diarrhea, Nausea, Vomiting Exacerbated by: Denies Relieved by: Denies Similar symptoms previously: Yes Recently seen / treated by doctor: No - Related Data Allergies/Adverse Reactions: ethinyl estradiol [From Ortho Tri-Cyclen LO (28)] Adverse Reaction (Verified 11/07 18:32) Nausea, Itching norgestimate [From Ortho Tri-Cyclen LO (28)] Adverse Reaction (Verified 18:32) Nausea, Itching shrimp Allergy (Severe, Uncoded 12/23/17 18:32) n and v mushrooms Allergy (Uncoded 12/23/17 18:32) Anaphylaxis, Headache Past Medical History - General Information source: Patient - Social History Smoking Status: Current Every Day Smoker Cigarette use (# per day): Yes - 5 Chew tobacco use (# tins/day): No Smoking Education Provided: Yes Frequency of alcohol use: Rare Drug Abuse: None Lives with: Family Family History: Arthritis, CAD, DM, Hypertension, Malignancy, Thyroid Disfunction, Other - PE on Fathers side. denies: COPD, CVA, Hyperlipidemia Patient has suicidal ideation: No Patient has homicidal ideation: No - Past Medical History Cardiac Medical History: Reports: Hx Heart Murmur Pulmonary Medical History: Reports: None EENT Medical History: Reports: None Neurological Medical History: Reports: Hx Cerebrovascular Accident - mild 2014, Hx Migraine Endocrine Medical History: Reports: None Renal/ Medical History: Reports: None Malignancy Medical History: Reports: None GI Medical History: Reports: Hx Gastroesophageal Reflux Disease - occ. Musculoskeltal Medical History: Reports Hx Arthritis - RA, Reports Hx Musculoskeletal Trauma Skin Medical History: Reports None Psychiatric Medical History: Reports: Hx Depression Traumatic Medical History: Reports: Hx Fractures - Coccyx Infectious Medical History: Reports: None Past Surgical History: Reports: Hx Abdominal Surgery - umbilical hernia x2, Hx Section - x1, Hx Cholecystectomy - 2005, Hx Herniorrhaphy - umbilical hernia repair x2, Hx Hysterectomy, Hx Orthopedic Surgery - knee replacement, Hx Tubal Ligation, Hx Umbilical Hernia - Immunizations Hx Diphtheria, Pertussis, Tetanus Vaccination: Yes Review of Systems - Review of Systems Constitutional: Fever EENT: No symptoms reported Cardiovascular: No symptoms reported Respiratory: No symptoms reported Gastrointestinal: Abdominal pain, Diarrhea, Nausea, Vomiting Genitourinary: No symptoms reported Female Genitourinary: No symptoms reported Musculoskeletal: No symptoms reported Skin: No symptoms reported Hematologic/Lymphatic: No symptoms reported Neurological/Psychological: No symptoms reported -: Yes All other systems reviewed and negative Physical Exam - Vital signs Vitals: Temp Pulse Resp BP Pulse Ox 98.4 F 72 18 125/57 L 98 01/07/18 09:56 01/07/18 09:56 01/07/18 09:56 01/07/18 09:56 01/07/18 09:56 Interpretation: Normal - General General appearance: Appears well, Alert - HEENT Head: Normocephalic, Atraumatic Eyes: Normal Pupils: PERRL - Respiratory Respiratory status: No respiratory distress Chest status: Nontender Breath sounds: Normal Chest palpation: Normal - Cardiovascular Rhythm: Regular Heart sounds: Normal auscultation Murmur: No - Abdominal Inspection: Morbidly Obese Distension: No distension Bowel sounds: Normal Tenderness: Tender. No: McBurney's point, Santos's sign, Guarding, Rebound Organomegaly: No organomegaly - Back Back: Normal, Nontender - Extremities General upper extremity: Normal inspection, Nontender, Normal color, Normal ROM , Normal temperature General lower extremity: Normal inspection, Nontender, Normal color, Normal ROM , Normal temperature, Normal weight bearing. No: Rand's sign - Neurological Neuro grossly intact: Yes Cognition: Normal Orientation: AAOx4 Amelia Coma Scale Eye Opening: Spontaneous Amelia Coma Scale Verbal: Oriented Amelia Coma Scale Motor: Obeys Commands [place] Coma Scale Total: 15 Speech: Normal Motor strength normal: LUE, RUE, LLE, RLE Sensory: Normal - Psychological Associated symptoms: Normal affect, Normal mood - Skin Skin Temperature: Warm Skin Moisture: Dry Skin Color: Normal Course - Re-evaluation Re-evalutation: 01/07/18 12:56 After performing a Medical Screening Examination, I estimate there is LOW risk for ACUTE APPENDICITIS, BOWEL OBSTRUCTION, ACUTE CHOLECYSTITIS, PERFORATED DIVERTICULITIS, INCARCERATED HERNIA, PANCREATITIS, PELVIC INFLAMMATORY DISEASE, PERFORATED ULCER, ECTOPIC , or TUBO-OVARIAN ABSCESS, thus I consider the discharge disposition reasonable. Also, there is no evidence or peritonitis , sepsis, or toxicity. I have reevaluated this patient multiple times and no significant life threatening changes are noted. The patient and I have discussed the diagnosis and risks, and we agree with discharging home with close follow-up with the understanding that symptoms and presentations can change. We also discussed returning to the Emergency Department immediately if new or worsening symptoms occur. We have discussed the symptoms which are most concerning (e.g., bloody stool, fever, changing or worsening pain, vomiting) that necessitate immediate return. - Vital Signs Vital signs: Temp Pulse Resp BP Pulse Ox 98.4 F 72 18 125/57 L 98 01/07/18 09:56 01/07/18 09:56 01/07/18 09:56 01/07/18 09:56 01/07/18 09:56 - Laboratory Result Diagrams: 01/07/18 11:05 01/07/18 11:05 Laboratory results interpreted by me: 01/07/18 01/07/18 01/07/18 10:48 11:05 11:05 WBC 3.9 L RDW 14.9 H Monocytes % 14.0 H BUN 6 L AST 13 L Albumin 3.4 L Urine Ketones TRACE H Urine Blood SMALL H Urine Urobilinogen 4.0 H Discharge - Discharge Clinical Impression: Nausea vomiting and diarrhea Condition: Stable Disposition: HOME, SELF-CARE Additional Instructions: VOMITING: Vomiting (or nausea without vomiting) can be caused by many other different problems. It can mean that something's wrong with the stomach, such as ulcers or inflammation or the intestinal tract, such as appendicitis. But it can also be a symptom of a problem that has nothing to do with the stomach or intestines. Vomiting is common with severe headaches, earaches, tonsillitis, and kidney infections, etc. We see it with pneumonia or heart attacks. Drugs can cause nausea and vomiting. Many abdominal problems cause vomiting; for example, gallstones, kidney stones, pancreatitis, and intestinal obstruction ( blocked bowels). In most cases, curing the vomiting depends on fixing the problem that caused it. For temporary relief, we may use an anti-nausea medicine. For home use, we can prescribe suppositories, chewable pills, pills that dissolve in the mouth, or liquid anti-nausea drugs. If the vomiting seems to be caused by a problem in the stomach, acid-suppressing drugs may be prescribed as well. It's important to avoid dehydration. Sip small amounts of clear liquids ( soft drinks, tea, broth, etc) . Try to take fluids frequently even if you are vomiting to prevent dehydration. Take increasing amounts of fluid and when liquids are being consumed successfully, advance to small amounts of bland food (toast, soups, mashed potatoes, etc.) until you are able to resume a regular diet. Avoid aspirin, tobacco, and alcohol. If the vomiting worsens, if the problem that's making you vomit worsens, or if there's evidence of bleeding in the stomach (such as black, tarry stool, or bloody or black vomit), you should return immediately. Also, return if abdominal pain worsens or becomes localized to one area or you develop high fever. Call your doctor if you aren't improved in 24 hours. DIARRHEA, NON-SPECIFIC: Diarrhea means frequent, watery stools. There are many causes. Any problem that keeps the intestinal tract from absorbing water from the stool can lead to diarrhea. A sudden new diarrhea problem is usually caused by a virus, food sensitivity, toxic bacteria, or drugs. In this case, we expect the problem to go away soon. Testing is done only if you seem seriously ill from the diarrhea. If you have chronic diarrhea, or diarrhea that keeps coming back, we need to find out why. Chronic diarrhea can be due to inflammation of the bowels such as Crohn's disease or ulcerative colitis, food sensitivity such as intolerance to lactose or wheat protein, irritable bowel syndrome, and other problems. If your diarrhea is a significant problem but it's not clear why you have it, we' ll refer you to a specialist for further testing. During an episode of diarrhea, drink small amounts (two to six ounces) of clear liquids (soft drinks, sport drinks, herb teas, broth, etc). Take fluids frequently to prevent dehydration. It's usually not a problem to take mild anti- diarrhea medication such as Kaopectate or Pepto-Bismol. As the diarrhea eases, advance to small amounts of bland food (mashed potato, toast) for 24 hours. Call the physician if blood appears in your vomit or stool, if vomiting lasts longer than 24 hours, if the abdominal pain worsens or becomes localized to one area, if you develop high fever, or if you become lightheaded and weak. VIRAL SYNDROME: The physician has diagnosed a viral infection. Viruses not only cause "colds," but can cause many different symptoms including generalized aching, fever, headache, cough, diarrhea, nausea, vomiting, and fatigue. The treatment, for the most part, is simply relief of symptoms. This means that antibiotics are usually not given. Rest, fluids, pain medications and, occasionally, medication for the specific symptoms that are most bothersome will be prescribed. Use good handwashing to avoid passing the virus to others. Shared toys should be cleaned with disinfectant. Clean the toilets, sinks, and counter surfaces in bathrooms. Launder clothing in hot water. Contact the physician if you develop any new or unusual symptoms such as severe headache, stiff neck, high fever, chest pain, productive cough, or shortness of breath. You should be rechecked if you don't see marked improvement within seven to 10 days. INTRAVENOUS (I V) FLUIDS: As part of your care today, you received intravenous (IV) fluids. IV fluids are administered to patients who are dehydrated or to those who have certain chemical (electrolyte) abnormalities that need correcting. ANTINAUSEA MEDICATION: You have been given a medication to suppress nausea and vomiting. This type of medication can be given as a shot, pill, or suppository. It will usually last for many hours. Pills and shots usually last six to eight hours. For the typical illness, only one or two doses of the medication may be necessary. Mild lightheadedness may occur. This type of medicine can cause drowsiness. Do not drive or operate dangerous machinery while under its influence. Do not mix with alcohol. See your doctor at once if you have muscle spasms or tightness, or uncontrollable motions (particularly of the neck, mouth, or jaw). Persistent vomiting or severe lightheadedness should also be evaluated by the physician. Rice applesauce bananas and toast can also help your diarrhea. FOLLOW-UP CARE: If you have been referred to a physician for follow-up care, call the physician s office for an appointment as you were instructed or within the next two days. If you experience worsening or a significant change in your symptoms, notify the physician immediately or return to the Emergency Department at any time for re-evaluation. Prescriptions: Ondansetron [Zofran Odt 4 mg Tablet] 1 tab PO Q6H #10 tab.rapdis Forms: Elevated Blood Pressure, Smoking Cessation Education, Return to Work Referrals: NIMCO DELUNA MD [Primary Care Provider] - Follow up as needed
[2018-01-07 11:29] LABS: ABSOLUTE LYMPHOCYTES (AUTO) 1.2 10^3/uL (0.5-4.7); ABSOLUTE MONOCYTES (AUTO) 0.5 10^3/uL (0.1-1.4); ABSOLUTE NEUT (AUTO) 2.1 10^3/uL (1.7-8.2); BASOPHILS % (AUTO) 0.3 % (0-2); EOSINOPHILS % (AUTO) 0.2 % (0-6); HEMATOCRIT 39.5 % (36.0-47.0); HEMOGLOBIN 13.1 g/dL (12.0-15.5); LYMPHOCYTES % (AUTO) 30.9 % (13-45); MEAN CORPUSCULAR HEMOGLOBIN 28.5 pg (27.0-33.4); MEAN CORPUSCULAR HGB CONC 33.3 g/dL (32.0-36.0); MEAN CORPUSCULAR VOLUME 86 fl (80-97); PLATELET COUNT 287 10^3/uL (150-450); RED BLOOD COUNT 4.61 10^6/uL (3.72-5.28); RED CELL DISTRIBUTION WIDTH 14.9 % (11.5-14.0); SEGMENTED NEUTROPHILS % (AUTO) 54.6 % (42-78); TOTAL CELLS COUNTED % (AUTO) 100 %; WHITE BLOOD COUNT 3.9 10^3/uL (4.0-10.5)
[2018-01-07 11:42] LABS: APPEARANCE,URINE SLIGHTLY-CLOUDY; BILIRUBIN,URINE NEGATIVE (NEGATIVE); COLOR,URINE YELLOW; GLUCOSE, URINE NEGATIVE (NEGATIVE); KETONES,URINE TRACE mg/dL (NEGATIVE); LEUKOCYTE ESTERASE,URINE NEGATIVE (NEGATIVE); NITRITE,URINE NEGATIVE (NEGATIVE); PROTEIN,URINE NEGATIVE (NEGATIVE); URINE SPECIFIC GRAVITY 1.015
[2018-01-07 12:24] LABS: ALANINE AMINOTRANSFERASE 25 U/L (9-52); ALBUMIN 3.4 g/dL (3.5-5.0); ALKALINE PHOSPHATASE 101 U/L (38-126); ANION GAP 10 (5-19); ASPARTATE AMINO TRANSFERASE 13 U/L (14-36); BILIRUBIN,DIRECT 0.2 mg/dL (0.0-0.4); BILIRUBIN,TOTAL 0.2 mg/dL (0.2-1.3); BLOOD UREA NITROGEN 6 mg/dL (7-20); CALCIUM 8.4 mg/dL (8.4-10.2); CARBON DIOXIDE 30 mmol/L (22-30); CHLORIDE 104 mmol/L (98-107); GLUCOSE 97 mg/dL (75-110); POTASSIUM 4.2 mmol/L (3.6-5.0); SODIUM 143.9 mmol/L (137-145); TOTAL PROTEIN 6.3 g/dL (6.3-8.2)
== END 2018-01-07 12:56 | disposition home or self-care (01) ==
LOC: ER 09:37
DX: R11.2 Nausea with vomiting, unspecified (principal); R19.7 Diarrhea, unspecified; E66.01 Morbid (severe) obesity due to excess calories; R50.9 Fever, unspecified; F17.210 Nicotine dependence, cigarettes, uncomplicated; R53.1 Weakness; Z68.41 Body mass index [BMI] 40.0-44.9, adult; Z90.710 Acquired absence of both cervix and uterus; Z80.9 Family history of malignant neoplasm, unspecified; Z86.73 Personal history of transient ischemic attack (TIA), and cerebral infarction without residual deficits; Z87.19 Personal history of other diseases of the digestive system; Z90.49 Acquired absence of other specified parts of digestive tract; Z98.51 Tubal ligation status; Z98.890 Other specified postprocedural states
CPT/HCPCS: 99284; 96361; 96374; 36415; 85025; 81025; 80053; 81001; J2405; J7030

== ENCOUNTER 2019-08-04 08:16 | Emergency (ER) | payer SELFPAY ==
--- NOTE | 2019-08-04 10:39 | ER Document Report ---
HPI - HPI Time Seen by Provider: 08/04/19 10:16 Pain Level: 3 Notes: Patient is a 44-year-old female no significant past medical history who presents complaining of a rash that started on her left arm and has slowly spread over the past few weeks to encompass both arms waist and some spots on the legs. 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 Patient states that the itching is worse at nighttime. She has tried some [id number] creams with no relief. She is able to eat and drink without difficulty. No other recent illness. No new exposures to chemicals, detergents, soaps, foods, travel. Denies any headache, fever, neck pain, URI, sore throat, chest pain, palpitations, syncope, cough, shortness of breath, wheeze, dyspnea, abdominal pain, nausea/vomiting/diarrhea, urinary retention, dysuria, hematuria. - ROS Systems Reviewed and Negative: Yes All other systems reviewed and negative - REPRODUCTIVE Reproductive: DENIES: : Past Medical History - Social History Smoking Status: Current Every Day Smoker Chew tobacco use (# tins/day): No Frequency of alcohol use: None Drug Abuse: None Family History: Arthritis, CAD, DM, Hypertension, Malignancy, Thyroid Disfunction, Other - PE on Fathers side. denies: COPD, CVA, Hyperlipidemia Patient has suicidal ideation: No Patient has homicidal ideation: No - Past Medical History Cardiac Medical History: Reports: Hx Heart Murmur Denies: Hx Atrial Fibrillation, Hx Congestive Heart Failure, Hx Heart Attack, Hx Hypercholesterolemia, Hx Hypertension Pulmonary Medical History: Neurological Medical History: Reports: Hx Cerebrovascular Accident - mild 2013, Hx Migraine. Denies: Hx Seizures, Hx Parkinson's Disease Renal/ Medical History: Denies: Hx End Stage Renal Disease, Hx Kidney Stones, Hx Peritoneal Dialysis GI Medical History: Reports: Hx Gastroesophageal Reflux Disease - occ.. Denies: Hx Hiatal Hernia, Hx Ulcer Musculoskeletal Medical History: Reports Hx Arthritis - RA, Reports Hx Musculoskeletal Trauma Psychiatric Medical History: Reports: Hx Depression Denies: Hx Bipolar Disorder, Hx Schizophrenia Traumatic Medical History: Reports: Hx Fractures - Coccyx Past Surgical History: Reports: Hx Abdominal Surgery - umbilical hernia x2, Hx Section - x1, Hx Cholecystectomy - 2005, Hx Herniorrhaphy - umbilical hernia repair x2, Hx Hysterectomy, Hx Orthopedic Surgery - knee replacement, Hx Tubal Ligation, Hx Umbilical Hernia. Denies: Hx Appendectomy, Hx Bowel Surgery, Hx Mastectomy, Hx Tonsillectomy - Immunizations Hx Diphtheria, Pertussis, Tetanus Vaccination: Yes Vertical Provider Document - CONSTITUTIONAL Agree With Documented VS: Yes Notes: PHYSICAL EXAMINATION: GENERAL: Well-appearing, well-nourished and in no acute distress. HEAD: Atraumatic, normocephalic. EYES: Pupils equal round and reactive to light, extraocular movements intact, sclera anicteric, conjunctiva are normal. ENT: EAC clear b/l. TM's intact b/l without erythema, fluid, or perforation. Nares patent and without discharge. oropharynx clear without exudates. No tonsilar hypertrophy or erythema. Moist mucous membranes. No sinus tenderness. NECK: Normal range of motion, supple without lymphadenopathy LUNGS: Breath sounds clear to auscultation bilaterally and equal. No wheezes rales or rhonchi. HEART: Regular rate and rhythm without murmurs, rubs, gallops. ABDOMEN: Soft, nontender, nondistended abdomen. No guarding, no rebound. No masses appreciated. Normal bowel sounds present. No CVA tenderness bilaterally. Musculoskeletal: FROM to passive/active. Strength 5+/5. Extremities: No cyanosis, clubbing, or edema b/l. Peripheral pulses 2+. Capillary refill less than 3 seconds. NEUROLOGICAL: Cranial nerves grossly intact. Normal speech, normal gait. Normal sensory, motor exams PSYCH: Normal mood, normal affect. SKIN: small scabbed areas of rash noted to the extremities and waist band, suspicious for burrows. No induration, fluctuance, streaks, or tenderness. - INFECTION CONTROL TRAVEL OUTSIDE OF THE [place] IN LAST 30 DAYS: No Course - Re-evaluation Re-evalutation: 08/04/19 10:37 Patient is an afebrile, well-hydrated, 44-year-old female who presents with a rash that I suspect be scabies. Vitals are acceptable without significant tachycardia, tachypnea, hypoxia. PE is otherwise unremarkable. Patient is nontoxic-appearing and is tolerating p.o. without difficulty. No further work- up warranted at this time. Low suspicion for any necrotizing fasciitis, SJS, SSS, drug reaction, sepsis, meningitis, syphilis, Lyme disease, [place] spotted fever, or other systemic emergent condition at this time. Patient aware that condition can change from initial presentation and she needs to monitor symptoms closely and seek medical attention with any acute changes. Recheck with your PCM in 3-5 days. Consider consult with dermatology. Return to the ED with any other worsening/concerning symptoms as reviewed. Patient is in agreement. - Vital Signs Vital signs: Temp Pulse Resp BP Pulse Ox 98.7 F 68 20 129/74 H 97 08/04/19 08:28 08/04/19 08:21 08/04/19 08:28 08/04/19 08:21 08/04/19 08:28 Discharge - Discharge Clinical Impression: Rash and nonspecific skin eruption, Scabies Condition: Stable Disposition: HOME, SELF-CARE Instructions: Scabies ([facility]) Additional Instructions: Keep the skin clean Wash with soap and water Tylenol/ibuprofen if needed Triple antibiotic ointment daily Scabies precautions as reviewed* Take medication as directed Monitor for any worsening symptoms Recheck with your PCM in 3-5 days Consider consult with Dermatology for ongoing/worsening symptoms Return to the ED with any worsening symptoms and/or development of fever, headache, chest pain, palpitations, syncope, shortness of breath, trouble breathing, abdominal pain, n/v/d, abscess, purulent discharge, red streaks, worsening swelling, or other worsening symptoms that are concerning to you. Prescriptions: Permethrin [Elimite] 60 gm TP ONCE PRN #60 cream.gm. PRN Reason: Forms: Elevated Blood Pressure, Smoking Cessation Education Referrals: NIMCO DELUNA MD [ACTIVE STAFF] - Follow up as needed FAYE COLINDRES DO [ACTIVE STAFF] - Follow up as needed
[2019-08-04 10:43] VITALS: BP 132/82
== END 2019-08-04 10:51 | disposition home or self-care (01) ==
LOC: ER 08:16
DX: B86 Scabies (principal); F17.200 Nicotine dependence, unspecified, uncomplicated; Z86.73 Personal history of transient ischemic attack (TIA), and cerebral infarction without residual deficits; Z90.49 Acquired absence of other specified parts of digestive tract; Z90.710 Acquired absence of both cervix and uterus
CPT/HCPCS: 99282

== ENCOUNTER 2019-08-28 14:18 | Emergency (ER) | payer SELFPAY ==
[2019-08-28] MEDS ORDERED: NORMAL SALINE 1000 ML 1,000 ML IV ONE (15:10)
--- NOTE | 2019-08-28 15:28 | ER Document Report ---
ED Medical Screen (RME) - General Chief Complaint: Abdominal Pain Stated Complaint: HEADACHE/STOMACH PAIN/VOMITING Time Seen by Provider: 08/28/19 15:05 Notes: Patient is a 44-year-old female who presents to the emergency department with a chief complaint of headache and abdominal pain. Patient reports that she has had a headache for 2 days. Patient reports this is located in the frontal aspect of her head and feels like her typical migraine. Patient reports she has photosensitive and has vomited 3 times. Patient reports she is also had chills. Patient reports her daughter and granddaughter were recently diagnosed with the flu. Patient reports she also has left lower abdominal pain is been present for 2 days. Patient reports she has had a cholecystectomy and umbilical hernia repair. TRAVEL OUTSIDE OF THE [place] IN LAST 30 DAYS: No - Related Data Allergies/Adverse Reactions: ethinyl estradiol [From Ortho Tri-Cyclen LO (28)] Adverse Reaction (Verified 08/04/19 08:28) Nausea, Itching norgestimate [From Ortho Tri-Cyclen LO (28)] Adverse Reaction (Verified 08/04/19 08:28) Nausea, Itching shrimp Allergy (Severe, Uncoded 08/04/19 08:28) n and v mushrooms Allergy (Uncoded 08/04/19 08:28) Anaphylaxis, Headache Home Medications: Aspirin 81mg Past Medical History - Social History Frequency of alcohol use: Occasional Drug Abuse: None - Past Medical History Cardiac Medical History: Reports: Hx Heart Murmur Denies: Hx Atrial Fibrillation, Hx Congestive Heart Failure, Hx Heart Attack, Hx Hypercholesterolemia, Hx Hypertension Pulmonary Medical History: Neurological Medical History: Reports: Hx Cerebrovascular Accident - mild 2013, Hx Migraine. Denies: Hx Seizures, Hx Parkinson's Disease Renal/ Medical History: Denies: Hx End Stage Renal Disease, Hx Kidney Stones, Hx Peritoneal Dialysis GI Medical History: Reports: Hx Gastroesophageal Reflux Disease - occ.. Denies: Hx Hiatal Hernia, Hx Ulcer Musculoskeltal Medical History: Reports Hx Arthritis - RA, Reports Hx Musculoskeletal Trauma Psychiatric Medical History: Reports: Hx Depression Denies: Hx Bipolar Disorder, Hx Schizophrenia Traumatic Medical History: Reports: Hx Fractures - Coccyx Past Surgical History: Reports: Hx Abdominal Surgery - umbilical hernia x2, Hx Section - x1, Hx Cholecystectomy - 2005, Hx Herniorrhaphy - umbilical hernia repair x2, Hx Hysterectomy, Hx Orthopedic Surgery - knee replacement, Hx Tubal Ligation, Hx Umbilical Hernia. Denies: Hx Appendectomy, Hx Bowel Surgery, Hx Mastectomy, Hx Tonsillectomy - Immunizations Hx Diphtheria, Pertussis, Tetanus Vaccination: Yes Course - Re-evaluation Re-evalutation: 08/28/19 15:28 I have greeted and performed a rapid initial assessment of this patient. A comprehensive ED assessment and evaluation of the patient, analysis of test results and completion of the medical decision making process will be conducted by additional ED providers.
[2019-08-28 15:58] LABS: ABSOLUTE BASOPHILS # (AUTO) 0.1 10^3/uL (0.0-0.2); ABSOLUTE LYMPHOCYTES (AUTO) 2.1 10^3/uL (0.5-4.7); ABSOLUTE MONOCYTES (AUTO) 0.5 10^3/uL (0.1-1.4); ABSOLUTE NEUT (AUTO) 3.4 10^3/uL (1.7-8.2); BASOPHILS % (AUTO) 0.9 % (0-2); EOSINOPHILS % (AUTO) 0.4 % (0-6); HEMATOCRIT 40.4 % (36.0-47.0); HEMOGLOBIN 13.3 g/dL (12.0-15.5); LYMPHOCYTES % (AUTO) 33.8 % (13-45); MEAN CORPUSCULAR HEMOGLOBIN 29.2 pg (27.0-33.4); MEAN CORPUSCULAR HGB CONC 32.9 g/dL (32.0-36.0); MEAN CORPUSCULAR VOLUME 89 fl (80-97); MONOCYTES % (AUTO) 8.6 % (3-13); PLATELET COUNT 321 10^3/uL (150-450); RED BLOOD COUNT 4.56 10^6/uL (3.72-5.28); RED CELL DISTRIBUTION WIDTH 15.2 % (11.5-14.0); SEGMENTED NEUTROPHILS % (AUTO) 56.3 % (42-78); TOTAL CELLS COUNTED % (AUTO) 100 %; WHITE BLOOD COUNT 6.1 10^3/uL (4.0-10.5)
[2019-08-28 16:17] LABS: ALBUMIN 3.7 g/dL (3.5-5.0); ALKALINE PHOSPHATASE 112 U/L (38-126); ANION GAP 8 (5-19); ASPARTATE AMINO TRANSFERASE 15 U/L (14-36); BILIRUBIN,DIRECT 0.3 mg/dL (0.0-0.4); BILIRUBIN,TOTAL 0.3 mg/dL (0.2-1.3); BLOOD UREA NITROGEN 10 mg/dL (7-20); CALCIUM 8.8 mg/dL (8.4-10.2); CARBON DIOXIDE 28 mmol/L (22-30); CHLORIDE 104 mmol/L (98-107); GLUCOSE 107 mg/dL (75-110); POTASSIUM 4.1 mmol/L (3.6-5.0); TOTAL PROTEIN 7.1 g/dL (6.3-8.2)
[2019-08-28 16:41] LABS: AMORPHOUS SEDIMENT,URINE TRACE /HPF; APPEARANCE,URINE CLOUDY; BILIRUBIN,URINE NEGATIVE (NEGATIVE); COLOR,URINE YELLOW; GLUCOSE, URINE NEGATIVE (NEGATIVE); KETONES,URINE NEGATIVE (NEGATIVE); LEUKOCYTE ESTERASE,URINE NEGATIVE (NEGATIVE); NITRITE,URINE NEGATIVE (NEGATIVE); PROTEIN,URINE NEGATIVE (NEGATIVE); URINE SPECIFIC GRAVITY 1.029
[2019-08-28] MEDS ORDERED: KETOROLAC TROMETHAMINE INJ/PF 30 MG/1 ML SDV IV ONE (17:12)
[2019-08-28] MEDS ORDERED: METOCLOPRAMIDE HCL INJ/PF 10 MG/2 ML SDV IV ONE (17:12)
[2019-08-28] MEDS ORDERED: DIPHENHYDRAMINE HCL 50 MG/ML VIAL IV ONE (17:12)
--- NOTE | 2019-08-28 17:16 | ER Document Report ---
ED General - General Chief Complaint: Abdominal Pain Stated Complaint: HEADACHE/STOMACH PAIN/VOMITING Time Seen by Provider: 08/28/19 15:05 TRAVEL OUTSIDE OF THE [place] IN LAST 30 DAYS: No - HPI Notes: Patient is a 44-year-old female who presents the emergency department for evaluation. She states on Wednesday morning she woke with a headache, which she states was a typical migraine for her, but the pain went down into her right neck and shoulder. She states her headache is waxed and waned for the last several days. Later that day she developed nausea, vomiting, diarrhea. She has a mild sore throat as well as a minimally productive cough. She has had some chills but no rohan fevers to her knowledge. She states she has been urinating more frequently than normal over the last 72 hours. Her emesis has been nonbloody, nonbilious. She has not had any diarrhea in the last 24 hours, had 2 episodes of nonbloody, nonbilious emesis. She currently puts her pain at a 3 out of 5 in the right side of her head, again radiating into the neck and shoulder. It is worsened by bright lights as well as movement, nothing seems to make it better thus far. - Related Data Allergies/Adverse Reactions: ethinyl estradiol [From Ortho Tri-Cyclen LO (28)] Adverse Reaction (Verified 08/04/19 08:28) Nausea, Itching norgestimate [From Ortho Tri-Cyclen LO (28)] Adverse Reaction (Verified 08/04/19 08:28) Nausea, Itching shrimp Allergy (Severe, Uncoded 08/04/19 08:28) n and v mushrooms Allergy (Uncoded 08/04/19 08:28) Anaphylaxis, Headache Home Medications: Aspirin 81mg Past Medical History - General Information source: Patient - Social History Smoking Status: Current Every Day Smoker Frequency of alcohol use: Occasional Drug Abuse: None Family History: Arthritis, CAD, DM, Hypertension, Malignancy, Thyroid Disfunction, Other - PE on Fathers side. denies: COPD, CVA, Hyperlipidemia Patient has suicidal ideation: No Patient has homicidal ideation: No - Past Medical History Cardiac Medical History: Reports: Hx Heart Murmur Denies: Hx Atrial Fibrillation, Hx Congestive Heart Failure, Hx Heart Attack, Hx Hypercholesterolemia, Hx Hypertension Pulmonary Medical History: Neurological Medical History: Reports: Hx Cerebrovascular Accident - mild 2014, Hx Migraine. Denies: Hx Seizures, Hx Parkinson's Disease Renal/ Medical History: Denies: Hx End Stage Renal Disease, Hx Kidney Stones, Hx Peritoneal Dialysis GI Medical History: Reports: Hx Gastroesophageal Reflux Disease - occ.. Denies: Hx Hiatal Hernia, Hx Ulcer Musculoskeletal Medical History: Reports Hx Arthritis - RA, Reports Hx Musculoskeletal Trauma Psychiatric Medical History: Reports: Hx Depression Denies: Hx Bipolar Disorder, Hx Schizophrenia Traumatic Medical History: Reports: Hx Fractures - Coccyx Past Surgical History: Reports: Hx Abdominal Surgery - umbilical hernia x2, Hx Section - x1, Hx Cholecystectomy - 2005, Hx Herniorrhaphy - umbilical hernia repair x2, Hx Hysterectomy, Hx Orthopedic Surgery - knee replacement, Hx Tubal Ligation, Hx Umbilical Hernia. Denies: Hx Appendectomy, Hx Bowel Surgery, Hx Mastectomy, Hx Tonsillectomy - Immunizations Hx Diphtheria, Pertussis, Tetanus Vaccination: Yes Review of Systems - Review of Systems Constitutional: See HPI EENT: See HPI Cardiovascular: No symptoms reported Respiratory: See HPI Gastrointestinal: See HPI Genitourinary: No symptoms reported Musculoskeletal: No symptoms reported Skin: No symptoms reported Neurological/Psychological: No symptoms reported Physical Exam - Vital signs Vitals: Temp Pulse Resp BP Pulse Ox 98.6 F 76 16 136/79 H 98 08/28/19 14:45 08/28/19 14:45 08/28/19 14:45 08/28/19 14:45 08/28/19 14:45 - Notes Notes: Vital signs reviewed, please refer to chart. Head is normocephalic, atraumatic. Pupils equal round, reactive to light. Oral mucosa is moist. Uvula is midline. Pharynx is without erythema or exudate. Neck is supple without meningismus. She has no midline tenderness or step-off. She has paraspinal musculature tenderness from the base of the occiput down to the base of the neck, and into the right trapezius, particularly overlying the first rib. There is associated spasm noted. Heart is regular rate and rhythm. Lungs are clear to auscultation bilaterally. Abdomen is soft, nontender, normoactive bowel sounds throughout. Extremities without cyanosis, clubbing. Posterior calves are nontender. Peripheral pulses are equal. Skin is warm and dry. Patient is awake, alert, oriented x3. Cranial nerves II - XII are grossly intact without focal neurologi pebbles deficits. Strength is plus 5 out of 5 bilateral upper and lower extremities. Sensation is intact. Reflexes symmetrical. Intact [id number], rapid alternating movements, [id number]. Course - Re-evaluation Re-evalutation: 08/28/19 17:15 Patient presents to the emergency department for evaluation. She has a typical migraine with symptoms presenting likely secondary to a viral syndrome. Laboratory investigations are unremarkable. Influenza still pending. Patient is medicated with a typical migraine cocktail. She has no signs of significant dehydration. She is given IV fluids. Her vital signs are largely unremarkable. At this point, given her findings, will likely discharge home with symptomatic treatment. Awaiting response to medication. 08/28/19 18:42 Patient is feeling significantly improved after migraine cocktail and IV fluids. My suspicion is that this patient has had a migraine, exacerbated by some sort of viral illness. We will send her home with nausea medication. She is to follow-up closely with primary care, return to the ED with worsening or concerning symptoms of any sort. - Vital Signs Vital signs: Temp Pulse Resp BP Pulse Ox 98.2 F 76 16 136/79 H 98 08/28/19 18:20 08/28/19 14:45 08/28/19 14:45 08/28/19 14:45 08/28/19 14:45 - Laboratory Result Diagrams: 08/28/19 15:40 08/28/19 15:40 Laboratory results interpreted by me: 08/28/19 08/28/19 15:40 15:40 RDW 15.2 H Urine Blood SMALL H Urine Urobilinogen 2.0 H Discharge - Discharge Clinical Impression: Migraine headache, Nausea vomiting and diarrhea Condition: Stable Disposition: HOME, SELF-CARE Instructions: Diarrhea, Nonspecific ([facility]), Intravenous (IV) Fluids ([facility]), Viral Syndrome ([facility]), Vomiting ([facility]), Migraine Headache ([facility]) Additional Instructions: Nausea. When you feel ready, advance to a bland diet. Return to the emergency department with worsening or new concerning symptoms of any sort. Rest, stay well-hydrated with small, frequent sips of fluids. Follow-up with primary care this week.
[2019-08-28 17:21] LABS: A TYPE INFLUENZA AG NEGATIVE (NEGATIVE); B INFLUENZA AG NEGATIVE (NEGATIVE)
[2019-08-28] MEDS ORDERED: ONDANSETRON ODT 4 MG TAB (6 TAB/ER DISP) PO PRN (18:42)
[2019-08-28 18:57] VITALS: BP 128/72
== END 2019-08-28 18:57 | disposition home or self-care (01) ==
LOC: ER 14:18
DX: G43.909 Migraine, unspecified, not intractable, without status migrainosus (principal); R19.7 Diarrhea, unspecified; R11.2 Nausea with vomiting, unspecified; R05 Cough; J02.9 Acute pharyngitis, unspecified; R68.83 Chills (without fever); M62.838 Other muscle spasm; R35.0 Frequency of micturition; F17.200 Nicotine dependence, unspecified, uncomplicated; Z79.82 Long term (current) use of aspirin; Z91.013 Allergy to seafood; Z87.892 Personal history of anaphylaxis; Z91.018 Allergy to other foods
CPT/HCPCS: 99283; 96361; 96374; 96375; 36415; 83690; 85025; 81025; 80053; 81001; 87804; J1200; J1885; J2765; J7030

== ENCOUNTER 2019-12-18 12:58 | Emergency (ER) | payer MEDICAID ==
[2019-12-18] MEDS ORDERED: KETOROLAC TROMETHAMINE INJ/PF 30 MG/1 ML SDV IV ONE (14:30)
[2019-12-18] MEDS ORDERED: DIPHENHYDRAMINE HCL 50 MG/ML VIAL IV ONE (14:30)
[2019-12-18] MEDS ORDERED: PROCHLORPERAZINE EDISYLATE INJ 10 MG/2 ML VIAL IV ONE (14:31)
[2019-12-18 15:11] LABS: ABSOLUTE BASOPHILS # (AUTO) 0.1 10^3/uL (0.0-0.2); ABSOLUTE LYMPHOCYTES (AUTO) 1.9 10^3/uL (0.5-4.7); ABSOLUTE MONOCYTES (AUTO) 0.5 10^3/uL (0.1-1.4); ABSOLUTE NEUT (AUTO) 3.6 10^3/uL (1.7-8.2); BASOPHILS % (AUTO) 1.2 % (0-2); EOSINOPHILS % (AUTO) 0.3 % (0-6); HEMATOCRIT 38.9 % (36.0-47.0); HEMOGLOBIN 13.2 g/dL (12.0-15.5); LYMPHOCYTES % (AUTO) 31.2 % (13-45); MEAN CORPUSCULAR HEMOGLOBIN 29.3 pg (27.0-33.4); MEAN CORPUSCULAR HGB CONC 33.9 g/dL (32.0-36.0); MEAN CORPUSCULAR VOLUME 87 fl (80-97); MONOCYTES % (AUTO) 8.8 % (3-13); PLATELET COUNT 290 10^3/uL (150-450); RED BLOOD COUNT 4.49 10^6/uL (3.72-5.28); RED CELL DISTRIBUTION WIDTH 15.2 % (11.5-14.0); SEGMENTED NEUTROPHILS % (AUTO) 58.5 % (42-78); TOTAL CELLS COUNTED % (AUTO) 100 %; WHITE BLOOD COUNT 6.1 10^3/uL (4.0-10.5)
[2019-12-18 15:27] LABS: ALBUMIN 3.6 g/dL (3.5-5.0); ALKALINE PHOSPHATASE 94 U/L (38-126); ANION GAP 5 (5-19); ASPARTATE AMINO TRANSFERASE 13 U/L (14-36); BILIRUBIN,TOTAL 0.3 mg/dL (0.2-1.3); BLOOD UREA NITROGEN 9 mg/dL (7-20); CALCIUM 8.6 mg/dL (8.4-10.2); CARBON DIOXIDE 28 mmol/L (22-30); CHLORIDE 104 mmol/L (98-107); CREATINE KINASE 37 U/L (30-135); GLUCOSE 100 mg/dL (75-110); POTASSIUM 4.1 mmol/L (3.6-5.0); TOTAL PROTEIN 6.7 g/dL (6.3-8.2)
--- NOTE | 2019-12-18 16:27 | ER Document Report ---
Entered by LESA SHUKLA SCRIBE 12/18/19 1408 Acting as scribe for:ELAYNE SALDANA MD ED General - General Chief Complaint: Shortness Of Breath Stated Complaint: FEVER Time Seen by Provider: 12/18/19 14:04 Primary Care Provider: MICHELLE MAYERS DO [Primary Care Provider] - Follow up as needed Mode of Arrival: Ambulatory Information source: Patient Notes: This 44 year old female patient presents to the emergency department today with complaints of shortness of breath for the last x4-5 days with associated reproducible chest wall pain. Patient stopped smoking cigarettes 2.5 weeks ago, stopped her meloxicam 2 weeks ago, and zoloft one week ago. Patient states that she "feels like she is losing control of her body at this moment" and she is very dramatic and histrionic. Patient complains of chest wall pain that is exacerbated with chest wall movement and bilaterally blurry vision. TRAVEL OUTSIDE OF THE [place] IN LAST 30 DAYS: No - Related Data Allergies/Adverse Reactions: ethinyl estradiol [From Ortho Tri-Cyclen LO (28)] Adverse Reaction (Verified 08/04/19 08:28) Nausea, Itching norgestimate [From Ortho Tri-Cyclen LO (28)] Adverse Reaction (Verified 08/04/19 08:28) Nausea, Itching shrimp Allergy (Severe, Uncoded 08/04/19 08:28) n and v mushrooms Allergy (Uncoded 08/04/19 08:28) Anaphylaxis, Headache Home Medications: pt unable to recall Past Medical History - General Information source: Patient - Social History Smoking Status: Former Smoker - quit x2.5 weeks ago Cigarette use (# per day): No Chew tobacco use (# tins/day): No Frequency of alcohol use: None Drug Abuse: None Lives with: Family Family History: Arthritis, CAD, DM, Hypertension, Malignancy, Thyroid Di sfunction, Other - PE on Fathers side Patient has suicidal ideation: No Patient has homicidal ideation: No - Past Medical History Cardiac Medical History: Reports: Hx Heart Murmur Pulmonary Medical History: Neurological Medical History: Reports: Hx Cerebrovascular Accident - mild 2013, Hx Migraine GI Medical History: Reports: Hx Gastroesophageal Reflux Disease Musculoskeletal Medical History: Reports Hx Arthritis - RA, Reports Hx M usculoskeletal Trauma Psychiatric Medical History: Reports: Hx Depression Traumatic Medical History: Reports: Hx Fractures - Coccyx Past Surgical History: Reports: Hx Abdominal Surgery - umbilical hernia x2, Hx Section - x1, Hx Cholecystectomy - 2005, Hx Herniorrhaphy - umbilical hernia repair x2, Hx Hysterectomy, Hx Orthopedic Surgery - knee replacement, Hx Tubal Ligation, Hx Umbilical Hernia - Immunizations Hx Diphtheria, Pertussis, Tetanus Vaccination: Yes Review of Systems - Review of Systems Constitutional: No symptoms reported EENT: See HPI, Blurred vision Cardiovascular: See HPI, Chest pain Respiratory: See HPI, Cough, Hurts to breathe, Short of breath Gastrointestinal: No symptoms reported Genitourinary: No symptoms reported Female Genitourinary: No symptoms reported Musculoskeletal: See HPI, Back pain, Muscle pain, Muscle stiffness, Neck pain Skin: No symptoms reported Hematologic/Lymphatic: No symptoms reported Neurological/Psychological: No symptoms reported -: Yes All other systems reviewed and negative Physical Exam - Vital signs Vitals: Temp Pulse Resp BP Pulse Ox 99.4 F 68 20 150/81 H 96 12/18/19 13:10 12/18/19 13:10 12/18/19 13:10 12/18/19 13:10 12/18/19 13:10 - Notes Notes: Physical Exam: General: Alert, morbidly obese, histrionic and dramatic. HEENT: Normocephalic. Atraumatic. PERRL. Extraocular movements intact. Oropharynx clear. Neck: Supple. Posterior cervical musculature tenderness with palpation. Respiratory: No respiratory distress. Clear and equal breath sounds bilaterally. Reproducible chest pain, sternal tenderness to palpation. Cardiovascular: Regular rate and rhythm. Abdominal: Morbidly obese. Non-tender. No distension. Normal Bowel Sounds. Back: No gross abnormalities. Extremities: Moves all four extremities. Upper extremities: Normal inspection. Normal ROM. Lower extremities: Normal inspection. No edema. Normal ROM. Neurological: Normal cognition. AAOx4. Normal speech. Psychological: Normal affect. Normal Mood. Skin: Warm. Dry. Normal color. Course - Vital Signs Vital signs: Temp Pulse Resp BP Pulse Ox 99.4 F 68 20 150/81 H 96 12/18/19 13:11 12/18/19 13:10 12/18/19 13:10 12/18/19 13:10 12/18/19 13:10 - Laboratory Result Diagrams: 12/18/19 14:49 12/18/19 14:49 Laboratory results interpreted by me: 12/18/19 12/18/19 12/18/19 14:49 14:49 14:49 RDW 15.2 H D-Dimer 0.83 H AST 13 L - Diagnostic Test Radiology reviewed: Image reviewed, Reports reviewed - Normal CTA of the chest - EKG Interpretation by Me EKG shows normal: Sinus rhythm, [place], Intervals, QRS Complexes, ST-T Waves Rate: Normal Rhythm: NSR When compared to previous EKG there are: No significant change Discharge - Discharge Clinical Impression: Chest pain, musculoskeletal, Anxiety Tension type headache Qualifiers: Headache chronicity pattern: unspecified pattern Intractability: not intractable Qualified Code(s): G44.209 - Tension-type headache, unspecified, not intractable Condition: Stable Disposition: HOME, SELF-CARE Additional Instructions: Chest Wall Pain: Your chest pain has been diagnosed as coming from the chest wall. This is often caused by straining the muscles or joints in the chest during physical activity, direct trauma, coughing, or vigorous vomiting. Persons with arthritis are especially prone to this type of pain, due to inflammation of the cartilage joints near the breast bone. Occasionally, no cause can be found. Rest from strenuous physical activity. This kind of chest pain is usually made worse by movement of the chest. Depending on the symptoms, we may prescribe medicine for pain, muscle relaxation, and antiinflammatory effects. If the pain is new, and seems to be due to muscle strain, cold packs can help. Otherwise, apply gentle warmth to the painful area for 15 minutes every hour or two. You should contact the doctor immediately if things change. Further evaluation is needed if you develop a fever or cough, if the nature of the pain changes, or if you become short of breath. Tension Headache: Your problem has been diagnosed as muscle tension headache. This very common type of headache occurs because of tightness in the muscles of the head and neck. The cause may be neck or jaw joint problems, but most commonly the cause is emotional stress. The headache may last hours or days. The treatment of uncomplicated tension headaches is rest and pain medication. Often, the newer antiinflammatory pain medications are prescribed, as these also decrease the irritability of the painful tissues. Muscle relaxers, cold packs, or warm packs are sometimes helpful. Anti-anxiety medication or narcotics are sometimes needed temporarily, but are best avoided in the long run. Your doctor has evaluated your headache problem, and finds no evidence of a serious health problem as a cause for the headache. If your headache becomes more severe, or if new symptoms develop (such as fever, stiff neck, vomiting, or decreasing alertness) you should be re-examined by the physician. Your chest and back pain seems to be musculoskeletal in origin. Your shortness of breath is not due to any problems in your lungs or with your heart. Your headache and visual problems are related to a tension type headache. I suspect much of your symptoms are due to anxiety. This would be made worse than usual due to stopping your Zoloft, stopping cigarettes and nicotine, and the chest pains possibly worse because you are stop your meloxicam. I would recommend you resume taking your Zoloft and meloxicam at this time. You can try Nicorette gum to ease nicotine withdrawal if that seems to be a contributing problem. You should follow-up with your primary care provider this week for recheck if you are not feeling better. RETURN TO THE EMERGENCY ROOM IF ANY NEW OR WORSENING SYMPTOMS. Referrals: MICHELLE MAYERS DO [Primary Care Provider] - Follow up as needed I personally performed the services described in the documentation, reviewed and edited the documentation which was dictated to the scribe in my presence, and it accurately records my words and actions.
--- NOTE | 2019-12-18 16:47 | RADIOLOGY REPORT (SQ) ---
EXAM DESCRIPTION: CHEST SINGLE VIEW IMAGES COMPLETED DATE/TIME: 12/18/2019 4:29 pm REASON FOR STUDY: Chest pain, shortness of breath COMPARISON: PA and lateral views of the chest from 12/23/2017. EXAM PARAMETERS: NUMBER OF VIEWS: One view. TECHNIQUE: An AP view of the chest was obtained. RADIATION DOSE: NA LIMITATIONS: None. FINDINGS: LUNGS AND PLEURA: Low inspiratory lung volumes without a superimposed consolidation, pleur al effusion or pneumothorax. MEDIASTINUM AND HILAR STRUCTURES: No mediastinal or hilar contour abnormality. HEART AND VASCULAR STRUCTURES: The cardiac silhouette and pulmonary vasculature are within normal singh its. BONES: No acute findings. HARDWARE: None in the chest. OTHER: Eventration of the right hemidiaphragm. IMPRESSION: No acute cardiopulmonary process. TECHNICAL DOCUMENTATION: JOB ID: [id number] 2010 [employer]- All Rights Reserved Reading location - IP/workstation name: [email or web address]
--- NOTE | 2019-12-18 17:50 | RADIOLOGY REPORT (SQ) ---
EXAM DESCRIPTION: CTA CHEST IMAGES COMPLETED DATE/TIME: 12/18/2019 5:37 pm REASON FOR STUDY: SOB, elevated d-dimer COMPARISON: Radiographs from earlier. TECHNIQUE: CT scan of the chest performed using helical scanning technique with dynamic intravenous contrast injection. Images reviewed with lung, soft tissue and bone windows. Reconstructed coronal and sagittal MPR images reviewed. Additional 3 dimensional post-processing performed to develop Maximal Intensity Projection images (OK P). All images stored on PACS. All CT scanners at this facility use dose modulation, iterative reconstruction, and/or weight based d osing when appropriate to reduce radiation dose to as low as reasonably achievable (ALARA). [facility]: Dose Right [facility]: CareDose [facility]: Dose Right [facility]: Teradose 4D [facility]: Bottle CONTRAST TYPE AND DOSE: contrast/concentration: Isovue 350.00 mg/ml; Total Contrast Delivered: 71.0 ml; Total Saline Delivered: 47.2 ml Contrast bolus adequate for pulmonary arteries and aorta. RENAL FUNCTION: GFR > 60. RADIATION DOSE: CT Rad equipment meets quality standard of care and radiation dose reduction techniq ues were employed. CTDIvol: 19.8 - 35.1 mGy. DLP: 1239 mGy-cm. . LIMITATIONS: None. FINDINGS: LUNGS AND PLEURA: Motion artifact. Low lung volumes with elevation of the right hemidiaph ragm. No acute infiltrate or suspicious opacities or significant pleural fluid. AORTA AND GREAT VESSELS: No aneurysm. Contrast bolus not optimized for the aorta. HEART: No pericardial effusion. No significant coronary artery calcifications. PULMONARY ARTERIES: No emboli visualized in the main pulmonary arteries or the segmental branches. HILAR AND MEDIASTINAL STRUCTURES: No identified masses or abnormal nodes. HARDWARE: None in the chest. UPPER ABDOMEN: No significant findings. Limited exam. THYROID AND OTHER SOFT TISSUES: No masses. No adenopathy. BONES: No acute or significant finding. 3D MIPS: Confirm above findings. OTHER: No other significant finding. IMPRESSION: NORMAL CTA OF THE CHEST. NO PULMONARY EMBOLI. COMMENT: Quality ID # [id number]: Final reports with documentation of one or more dose reduction techniques (e.g., Automated exposure control, adjustment of the mA and/or kV according to patient size, use of iterative reconstruction technique) TECHNICAL DOCUMENTATION: JOB ID: [id number] 2010 [employer]- All Rights Reserved Reading location - IP/workstation name: [email or web address]
[2019-12-18 18:59] VITALS: BP 136/74
--- NOTE | 2019-12-19 15:27 | EKG REPORT ---
SEVERITY:- BORDERLINE ECG - SINUS RHYTHM CONSIDER ANTERIOR INFARCT : Confirmed by: Marie Gottlieb MD 19-Dec-2019 15:26:45
== END 2019-12-18 18:59 | disposition home or self-care (01) ==
LOC: ER 12:58
DX: F41.9 Anxiety disorder, unspecified (principal); G44.209 Tension-type headache, unspecified, not intractable; R06.02 Shortness of breath; R07.89 Other chest pain; H53.8 Other visual disturbances; R07.1 Chest pain on breathing; R05 Cough; M54.9 Dorsalgia, unspecified; M79.10 Myalgia, unspecified site; M54.2 Cervicalgia; E66.01 Morbid (severe) obesity due to excess calories; Z87.891 Personal history of nicotine dependence; Z91.013 Allergy to seafood; Z87.892 Personal history of anaphylaxis; Z91.018 Allergy to other foods
CPT/HCPCS: 93005; 99284; 96374; 96375; 36415; 82550; 85025; 80053; 84484; 85379; 71045; 71275; 93010; J1200; J1885; J0780

== ENCOUNTER → 2019-12-28 | Outpatient (CLI) | payer MEDICAID ==
--- NOTE | 2019-12-28 12:22 | RADIOLOGY REPORT (SQ) ---
EXAM DESCRIPTION: MRI HEAD WITHOUT IMAGES COMPLETED DATE/TIME: 12/28/2019 12:06 pm REASON FOR STUDY: (R53.1)WEAKNESS R53.1 WEAKNESS COMPARISON: None. TECHNIQUE: Multiplanar imaging includes non-contrasted T1, T2, FLAIR, and diffusion with ADC map seq uences. Images stored on PACS. LIMITATIONS: None. FINDINGS: ANATOMY: No anomalies. Normal vascular flow voids. Pituitary fossa normal. CSF SPACES: Normal in size and contour. No hemorrhage. CEREBRUM: Sulci and gyri normal in size and contour. Normal white matter signal on FLAIR imaging. No evidence of hemorrhage, mass, or extraaxial fluid collection. POSTERIOR FOSSA: No signal alteration. No hemorrhage. No edema, masses or mass effect. Internal rl tory canals, cerebello-pontine angles, mastoids normal. DIFFUSION IMAGING: Negative for acute or sub-acute infarction. ORBITS: No masses. Globes normal. PARANASAL SINUSES: No fluid levels. Mucosa normal. OTHER: No other significant finding. IMPRESSION: NORMAL MRI OF THE BRAIN WITHOUT INTRAVENOUS GADOLINIUM CONTRAST. EVIDENCE OF ACUTE STROKE: NO. TECHNICAL DOCUMENTATION: JOB ID: [id number] 2010 [employer]- All Rights Reserved Reading location - IP/workstation name: [email or web address]
== END ==
LOC: RAD 11:15
PROVIDERS: ATTEND Nurse Practitioner Family
DX: R53.1 Weakness (principal)
CPT/HCPCS: 70551

== ENCOUNTER → 2020-03-20 | Outpatient (CLI) | payer MEDICAID ==
--- NOTE | 2020-03-20 13:24 | WOMENS IMAGING REPORT ---
EXAM DESCRIPTION: 3D SCREENING MAMMO BILAT IMAGES COMPLETED DATE/TIME: 03/20/2020 10:10 am REASON FOR STUDY: Z12.31 ENCNTR SCREEN MAMMOGRAM FOR MALIGNANT NEOPLASM OF BREAST Z12.31 ENCNTR SCR EEN MAMMOGRAM FOR MALIGNANT NEOPLASM OF ALLYN COMPARISON: None. Baseline imaging. EXAM PARAMETERS: Standard craniocaudal and mediolateral oblique views of each breast recorded using digital acquisition and breast tomosynthesis. Read with the assistance of CAD. .[facility] Television Program Director Version 9.2 LIMITATIONS: None. FINDINGS: RIGHT BREAST MASSES: No suspicious masses. CALCIFICATIONS: No new or suspicious calcifications. ARCHITECTURAL DISTORTION: None. ASYMMETRY: There is a focal asymmetry within the right upper outer quadrant at approximately the 9 o' clock position, 13 cm from the nipple. OTHER: No other significant findings. LEFT BREAST MASSES: No suspicious masses. CALCIFICATIONS: No new or suspicious calcifications. ARCHITECTURAL DISTORTION: None. ASYMMETRY: None noted. OTHER: No other significant findings. IMPRESSION: Focal asymmetry within the right upper outer quadrant. 0 Incomplete: Needs Additional Imaging Evaluation and/or prior Mammograms for Comparison. BREAST DENSITY: b. There are scattered areas of fibroglandular density. BIRAD: ASSESSMENT: 0 Incomplete: Needs Additional Imaging Evaluation and/or prior Mammograms for C omparison. RECOMMENDATION: RECOMMENDED FOLLOW-UP: Recommend spot compression imaging of the above findings. Ad ditional sonographic evaluation at the interpreting radiologist's discretion. The patient will be contacted for additional imaging. COMMENT: The patient has been notified of the results by letter per MQSA requirements. Additional no tification policies are in place for contacting patient with suspicious or incomplete findings. Quality ID #[id number]: The [employer] recommends an annual screening mammogram for women aged 40 years or over. This facility utilizes a reminder system to ensure that all patients receive reminder letters, and/or direct phone calls for appointments. This includes reminders for routine scr eening mammograms, diagnostic mammograms, or other Breast Imaging Interventions when appropriate. Th is patient will be placed in the appropriate reminder system. TECHNICAL DOCUMENTATION: FINDING NUMBER: (1) ASSESSMENT: (1) JOB ID: [id number] 2010 [employer]- All Rights Reserved Reading location - IP/workstation name: [email or web address]
== END ==
LOC: WI 09:31
PROVIDERS: ATTEND Nurse Practitioner Family
DX: Z12.31 Encounter for screening mammogram for malignant neoplasm of breast (principal); N64.89 Other specified disorders of breast
CPT/HCPCS: 77063; 77067

== ENCOUNTER → 2020-04-02 | Outpatient (CLI) | payer MEDICAID ==
--- NOTE | 2020-04-02 11:06 | WOMENS IMAGING REPORT ---
EXAM DESCRIPTION: RIGHT DIAGNOSTIC MAMMO W/CAD; U/S BREAST UNILAT LIMITED IMAGES COMPLETED DATE/TIME: 04/02/2020 10:18 am; 04/02/2020 10:49 am REASON FOR STUDY: R92.2 INCONCLUSIVE MAMMOGRAM; RT BREAST R92.2 R92.2 INCONCLUSIVE MAMMOGRAM COMPARISON: 03/20/2020. EXAM PARAMETERS: True lateral and spot compression MLO and CC images acquired. LIMITATIONS: None. FINDINGS: BREAST LATERALITY: right MASSES: Masses in the upper-outer breast. Smooth contour. CALCIFICATIONS: No new or suspicious calcifications. ARCHITECTURAL DISTORTION: None. ASYMMETRY: Mild asymmetry in the upper-outer breast. OTHER: No other significant findings. BREAST ULTRASOUND: TECHNIQUE: Static and dynamic grayscale images acquired of the right breast in the specific areas of clinical/mammographic concern, upper outer quadrant. Selected color Doppler images recorded. ELASTOGRAPHY PERFORMED: No. LIMITATIONS: None. FINDINGS: MASS: In the 9 o'clock location there is an oval circumscribed hypoechoic mass measuring 5 x 11 mm. In the 10 o'clock location there is a circumscribed hypoechoic mass with fatty hilum measuring 6 x 8 mm. In the 10-11 o'clock location there is an oval circumscribed hypoechoic mass measuring 8 x 15 mm . Oriented parallel to the skin. No distal shadowing. ELASTOGRAPHY CHARACTERISTICS: Not applicable. OTHER: No other significant finding. IMPRESSION: Circumscribed masses in the upper-outer quadrant as described. The largest mass is prob ably a fibroadenoma. The other smaller masses are probably lymph nodes. No suspicious sonographic c haracteristics. Recommend short-term interval followup. BREAST DENSITY: a. The breasts are almost entirely fatty. BIRAD: ASSESSMENT: 3 Probably benign finding. Initial short-interval follow-up suggested. RECOMMENDATION: RECOMMENDED FOLLOW UP: Birads 3: The patient will return in 6 months for follow-up i vera. SPECIFIC INTERVENTION/IMAGING/CONSULTATION RECOMMENDED:The patient will return for 6 month follow-up targeted breast ultrasound. COMMUNICATION:The imaging findings were not discussed with the patient. Her referring provider has be en notified of the findings. COMMENT: The patient has been notified of the results by letter per MQSA requirements. Additional no tification policies are in place for contacting patient with suspicious or incomplete findings. Quality ID #225: The [employer] recommends an annual screening mammogram for women aged 40 years or over. This facility utilizes a reminder system to ensure that all patients receive reminder letters, and/or direct phone calls for appointments. This includes reminders for routine scr eening mammograms, diagnostic mammograms, or other Breast Imaging Interventions when appropriate. Th is patient will be placed in the appropriate reminder system. TECHNICAL DOCUMENTATION: FINDING NUMBER: (1) ASSESSMENT: (1) JOB ID: [id number] 2010 [employer]- All Rights Reserved Reading location - IP/workstation name: [email or web address]
== END ==
LOC: WI 09:52
PROVIDERS: ATTEND Nurse Practitioner Family
DX: R92.2 Inconclusive mammogram (principal)
CPT/HCPCS: 76642; 77065